=== PATIENT | male | born 1990 | race Caucasian/White ===

== ENCOUNTER 2022-06-30 15:53 | Emergency (ER) | payer OTHER, SELFPAY ==
--- NOTE | 2022-06-30 16:01 | ED.NECK ---
HPI - Neck Pain/Injury General Chief Complaint: Neck Pain/Injury Stated Complaint: neck pain Time Seen by Provider: 06/30/22 16:01 Source: patient and RN notes reviewed History of Present Illness HPI Narrative: Patient is a 31-year-old male who presents the urgent care with complaints of left-sided neck pain radiating down the left shoulder. Patient states he believes he tweaked it while trying to lift wood over his head at [employer] on Thursday and noticed the pain Thursday morning. Patient states he has been taking 800 mg ibuprofen and using Biofreeze. No other acute complaints. No acute distress noted. Patient aware of the plan of care. Some parts of this dictation were generated by voice recognition software and may contain typographical and/or grammatical inaccuracies. Related Data Home Medications Medication Instructions Recorded Confirmed dextroamphetamine-amphetamine ER 25 mg PO DAILY 06/30/22 06/30/22 25 mg 24hr capsule,extend release Allergies Allergy/AdvReac Type Severity Reaction Status Date / Time Penicillins Allergy Unknown Rash Verified 06/30/22 16:05 Review of Systems Review of Systems: CONSTITUTIONAL: Denies fever, chills, or sweats. EYES: Denies visual changes, redness, or discharge. ENT: Denies rhinorrhea, congestion, sore throat, or otalgia. Reports of left-sided neck pain CARDIOVASCULAR: Denies chest pain, palpitations, or edema. RESPIRATORY: Denies cough or dyspnea. GASTROINTESTINAL: Denies abdominal pain, nausea, vomiting, or diarrhea. GENITOURINARY: Denies dysuria or hematuria. SKIN: Denies rash or itching. MUSCULOSKELETAL: Denies back pain, joint pain, or myalgia. NEUROLOGIC: Denies headache, numbness, or weakness. All other systems reviewed are negative, except as documented in HPI. PMFSH Comments At the time of my signature, I reviewed and agree with the nursing past medical, surgical, social, and family history. There is no relevant family history pertinent to the patient complaint. Exam Narrative: GENERAL: This is a well-nourished, well-developed patient, in no apparent distress. HEAD: normocephalic, atraumatic. EYES: PERRL. Sclera clear/white. Vision is grossly intact. EARS: External ears normal NOSE: External nose normal with no obvious nasal discharge, nares without redness, no rhinorrhea. THROAT: Mucous membranes moist NECK: chin tuck, head tilt and right flexion within normal limits. Left flexion exacerbates pain. Moderate diffuse left cervical tenderness without step-off of cervical spine. SKIN: warm, intact with no suspicious lesions or rash, good texture and turgor. NEURO: awake, alert, and oriented to person, place and time. There were no obvious focal neurologic abnormalities. EXTREMITIES: No clubbing, cyanosis, or edema. Range of motion left upper extremity within normal limits Course Course Level of Care: Express Care Visit Vital Signs Vital signs: Vital Signs Temperature 97.6 F 06/30/22 16:05 Pulse Rate 94 06/30/22 16:05 Respiratory Rate 18 06/30/22 16:05 Blood Pressure 138/82 06/30/22 16:05 Pulse Oximetry 99 06/30/22 16:05 Oxygen Delivery Room Air 06/30/22 16:05 Temperature 97.6 F 06/30/22 16:05 Pulse Rate 94 06/30/22 16:05 Respiratory Rate 18 06/30/22 16:05 Blood Pressure 138/82 06/30/22 16:05 Pulse Oximetry 99 06/30/22 16:05 Oxygen Delivery Room Air 06/30/22 16:05 Reviewed MDM - Neck Pain/Injury MDM Narrative Medical decision making narrative: Advised the patient to complete the steroid regimen as prescribed. Take the steroid in the morning and use a muscle relaxer at night. You may use a muscle relaxer 3 times a day however would not recommend working, driving or operating heavy machinery while on the medication, due to drowsiness. May take 5 to 10 mg of Flexeril with each dose as needed, 3 times a day. Continue your 800 mg ibuprofen as needed for pain or discomfort. Avoid any heavy lifting especially above
[2022-06-30 16:05] VITALS: BP 138/82; PULSE 94; RESP 18; TEMP 36.4; O2SAT 99
== END 2022-06-30 16:32 | disposition home or self-care (01) ==
PROVIDERS: Emergency Provider Nurse Practitioner Family
DX: S16.1XXA Strain of muscle, fascia and tendon at neck level, initial encounter (principal); X50.9XXA Other and unspecified overexertion or strenuous movements or postures, initial encounter; F90.9 Attention-deficit hyperactivity disorder, unspecified type
CPT/HCPCS: 99203; G0463

== ENCOUNTER 2023-01-26 11:59 | Emergency (ER) | payer OTHER, SELFPAY ==
--- NOTE | 2023-01-26 12:09 | ED.URI ---
HPI - URI/Sore Throat General Chief Complaint: Upper Respiratory Infection Stated Complaint: sore throaat Time Seen by Provider: 01/26/23 12:09 Source: patient and RN notes reviewed History of Present Illness HPI Narrative: Patient is a 32-year-old male who presents to urgent care with complaints of 2 day history of headache and sore throat that started yesterday. Patient has been taking ibuprofen. Also reports of sinus drainage. Denies any fever, chills, nausea or vomiting. No other acute complaints. No acute distress noted. Patient aware of the plan of care. Some parts of this dictation were generated by voice recognition software and may contain typographical and/or grammatical inaccuracies. Related Data Home Medications Medication Instructions Recorded Confirmed dextroamphetamine-amphetamine ER 25 mg PO DAILY 06/30/22 06/30/22 25 mg 24hr capsule,extend release Allergies Allergy/AdvReac Type Severity Reaction Status Date / Time Penicillins Allergy Unknown Rash Verified 06/30/22 16:05 Review of Systems Review of Systems: CONSTITUTIONAL: Denies fever, chills, or sweats. EYES: Denies visual changes, redness, or discharge. ENT: Denies rhinorrhea, congestion, reports of sore throat postnasal drainage CARDIOVASCULAR: Denies chest pain, palpitations, or edema. RESPIRATORY: Denies cough or dyspnea. GASTROINTESTINAL: Denies abdominal pain, nausea, vomiting, or diarrhea. GENITOURINARY: Denies dysuria or hematuria. SKIN: Denies rash or itching. MUSCULOSKELETAL: Denies back pain, joint pain, or myalgia. NEUROLOGIC: Reports of headache. All other systems reviewed are negative, except as documented in HPI. PMFSH Comments At the time of my signature, I reviewed and agree with the nursing past medical, surgical, social, and family history. There is no relevant family history pertinent to the patient complaint. Exam Narrative: GENERAL: This is a well-nourished, well-developed patient, in no apparent distress. HEAD: normocephalic, atraumatic. EYES: PERRL. Sclera clear/white. Vision is grossly intact. EARS: External ears normal, auditory canals clear and without drainage, TMs normal without perforation. Hearing grossly intact. NOSE: External nose normal with no obvious nasal discharge, nares without redness, no rhinorrhea. THROAT: Mucous membranes moist, mild to moderate bilateral tonsillar edema with moderate postnasal drainage. NECK: Neck supple RESPIRATORY: Clear to auscultation. Breath sounds equal bilaterally. No wheezes, rales, or rhonchi. SKIN: warm, intact with no suspicious lesions or rash, good texture and turgor. NEURO: awake, alert, and oriented to person, place and time. There were no obvious focal neurologic abnormalities. EXTREMITIES: No clubbing, cyanosis, or edema. Course Course Level of Care: Express Care Visit Vital Signs Vital signs: Vital Signs Temperature 99 F 01/26/23 12:15 Pulse Rate 112 H 01/26/23 12:15 Respiratory Rate 20 01/26/23 12:15 Blood Pressure 135/80 01/26/23 12:15 Pulse Oximetry 100 01/26/23 12:15 Oxygen Delivery Room Air 01/26/23 12:15 Temperature 99 F 01/26/23 12:15 Pulse Rate 112 H 01/26/23 12:15 Respiratory Rate 20 01/26/23 12:15 Blood Pressure 135/80 01/26/23 12:15 Pulse Oximetry 100 01/26/23 12:15 Oxygen Delivery Room Air 01/26/23 12:15 Reviewed MDM - URI/Sore Throat MDM Narrative Medical decision making narrative: Reviewed lab results with the patient. He is aware that strep swab was positive. Advised patient to complete the oral antibiotic regimen as prescribed. Be sure to eat and drink with the medication. Would recommend a daily antihistamine such as Claritin or Zyrtec for it postnasal drainage. Use Tylenol/ibuprofen as needed for pain or headache. Increase water intake and use a humidifier at night. Be aware you are considered contagious until you have been on the medication for 24 hours and remained fever free. Vincent
[2023-01-26 12:15] VITALS: BP 135/80; PULSE 112; RESP 20; TEMP 37.2; O2SAT 100
== END 2023-01-26 12:30 | disposition home or self-care (01) ==
PROVIDERS: Emergency Provider Nurse Practitioner Family
DX: J02.0 Streptococcal pharyngitis (principal)
CPT/HCPCS: 87880; 99213; G0463

== ENCOUNTER 2023-07-13 14:40 | Emergency (ER) | payer OTHER, SELFPAY ==
[2023-07-13 14:44] VITALS: BP 141/70; PULSE 108; RESP 20; TEMP 36.7; O2SAT 96
--- NOTE | 2023-07-13 15:07 | ED.EYEPROB ---
HPI - Eye Problem General Chief complaint: Eye Problems Stated complaint: poss pink eye/sore throat Source: patient and RN notes reviewed History of Present Illness HPI Narrative: 32 yo M presents to urgent care with complaints of right eye irritation and itching. Pt states it started yesterday and now his left eye is started to itch. Pt reports his right eye was matted shut this morning with drainage. States his vision seems foggy in his right eye in clinic. Reports sore throat today as well. Denies any fevers, chills, EOM pain, chest pain, SOB, or vomiting. Does not wear conntacts. Related Data Home Medications Medication Instructions Recorded Confirmed dextroamphetamine-amphetamine ER 25 mg PO DAILY 06/30/22 07/13/23 25 mg 24hr capsule,extend release Allergies Allergy/AdvReac Type Severity Reaction Status Date / Time Penicillins Allergy Unknown Rash Verified 07/13/23 14:57 Review of Systems Review of Systems: CONSTITUTIONAL: Denies fever, chills, or sweats. EYES: right eye irritation and drainage ENT: sore throat CARDIOVASCULAR: Denies chest pain, palpitations, or edema. RESPIRATORY: Denies cough or dyspnea. GASTROINTESTINAL: Denies abdominal pain, nausea, vomiting, or diarrhea. GENITOURINARY: Denies dysuria or hematuria. SKIN: Denies rash or itching. MUSCULOSKELETAL: Denies back pain, joint pain, or myalgia. NEUROLOGIC: Denies headache, numbness, or weakness. Pertinent positives per HPI. PMFSH Comments At the time of my signature, I reviewed and agree with the nursing past medical, surgical, social, and family history. There is no relevant family history pertinent to the patient complaint. Exam Narrative: GENERAL: This is a well-nourished, well-developed patient, in no apparent distress. HEAD: normocephalic, atraumatic. EYES: Right sclera erythremic, injected conjunctivae. dried drainage to inner canthus. EOM intact. PERRLA. no surrounding erythema. Right lower conjunctiva injected. no drainage. mild sclera erythema. EARS: External ears normal, auditory canals clear and without drainage. Hearing grossly intact. NOSE: External nose normal with no obvious nasal discharge, nares without redness, no rhinorrhea. THROAT: Mucous membranes moist, posterior pharynx erythremic. NECK: Neck supple, non-tender without lymphadenopathy, masses or thyromegaly. CARDIOVASCULAR: Regular rate and rhythm without murmurs, gallops, or rubs. RESPIRATORY: Clear to auscultation. Breath sounds equal bilaterally. No wheezes, rales, or rhonchi. GASTROINTESTINAL: Abdomen soft, non-tender, nondistended. Bowel sounds are active. No hepato-splenomegaly, or palpable masses. No guarding. SKIN: warm, intact with no suspicious lesions or rash, good texture and turgor. NEURO: awake, alert, and oriented to person, place and time. There were no obvious focal neurologic abnormalities. EXTREMITIES: No clubbing, cyanosis, or edema. No joint tenderness, effusion, or edema noted. BACK: Nontender without deformity or crepitus. No flank tenderness. Course Course Level of Care: Express Care Visit Vital Signs Vital signs: Vital Signs Temperature 98.0 F 07/13/23 14:44 Pulse Rate 108 H 07/13/23 14:44 Respiratory Rate 96 H 07/13/23 14:44 Blood Pressure 141/70 H 07/13/23 14:44 Pulse Oximetry 96 07/13/23 14:44 Oxygen Delivery Room Air 07/13/23 14:44 Temperature 98.0 F 07/13/23 14:44 Pulse Rate 108 H 07/13/23 14:44 Respiratory Rate 96 H 07/13/23 14:44 Blood Pressure 141/70 H 07/13/23 14:44 Pulse Oximetry 96 07/13/23 14:44 Oxygen Delivery Room Air 07/13/23 14:44 Reviewed MDM - Eye Problem MDM Narrative Medical decision making narrative: Your exam today shows Conjunctivitis, You have been given a prescription for eye drops. Use the eye drops as instructed. If you are not better in two (2) days, you need to follow up with an welding machine operator friction. Do not rub the eye or put anything else in the eye,
== END 2023-07-13 15:17 | disposition home or self-care (01) ==
PROVIDERS: Emergency Provider Nurse Practitioner Family
DX: H10.9 Unspecified conjunctivitis (principal); F90.9 Attention-deficit hyperactivity disorder, unspecified type
CPT/HCPCS: 87081; 87880; 99213; G0463

== ENCOUNTER 2024-10-14 08:24 | Emergency (ER) | payer OTHER, SELFPAY ==
[2024-10-14 08:31] VITALS: BP 130/95; PULSE 106; RESP 20; TEMP 36.9; O2SAT 98
--- NOTE | 2024-10-14 08:35 | ED_ITS ---
HPI - URI/Sore Throat General Chief Complaint: Upper Respiratory Infection Stated Complaint: Congestion/Cough Time Seen by Provider: 10/14/24 08:35 Source: patient, RN notes reviewed and old records reviewed Mode of arrival: ambulatory Limitations: no limitations History of Present Illness HPI Narrative: 34 year old male who presents to [facility] care with complaints of 3 day history of cough with some congestion, headache and sore throat. Patient report that he took Mucinex and DayQuil yesterday but has not taken any medication so far today. Patient reports no known fevers but admits to some chills today. Patient states that son has bronchiolitis at this time. MD elicited complaint: cough and sore throat Pertinent past history: other (strep throat in past) Onset (ago): day(s) (3) Pain scale (0-10): 3 Able to tolerate fluids by mouth: Yes Treatments prior to arrival: other (Mucinex and DayQuil) Related Data Home Medications ?Medication ?Instructions ?Recorded ?Confirmed ?Last Taken ?Type dextroamphetamine-amphetamine ER 25 mg PO DAILY 06/30/22 10/14/24 Unknown History 25 mg 24hr capsule,extend release Allergies Allergy/AdvReac Type Severity Reaction Status Date / Time Penicillins Allergy Unknown Rash Verified 07/13/23 14:57 Review of Systems Review of Systems: CONSTITUTIONAL: Reports malaise, chills,no sweats, or known fever. EYES: Denies visual changes, redness, or discharge. ENT: Reports rhinorrhea, congestion, no sinus pain, no otalgia and poitive for sore throat. CARDIOVASCULAR: Denies chest pain, palpitations, or edema. RESPIRATORY: Reports cough.? Denies dyspnea. GASTROINTESTINAL: Denies abdominal pain, nausea, vomiting, diarrhea SKIN: Denies rash or itching. MUSCULOSKELETAL: Denies myalgia. NEUROLOGIC: Reports headache. All systems reviewed & are unremarkable except as noted in HPI and below PMFSH Past Medical History Medical History (Updated 10/14/24 @ 08:58 by Theodora Valle NP) ADHD (attention deficit hyperactivity disorder) Surgical History Surgical History (Updated 10/14/24 @ 08:37 by Theodora Valle NP) Hx of appendectomy Social History Social History (Updated 10/14/24 @ 08:38 by Theodora L. Leonard, DESK MAKER) Smoking status: Never smoker Alcohol intake: current Alcohol use details: social Substance use type: does not use Living arrangements: with family Gender identity (if verbalized by the patient): Male Comments At time of signature, agree with nursing past medical, surgical, social and family history. There is no relevant family history pertinent to the presenting complaint Exam Narrative: GENERAL: Well-appearing, well-nourished, and in no acute distress. HEAD: Normocephalic EYES: PERRLA, conjunctivae clear ENT: Nares clear, turbinates edematous and erythematous, clear discharge. Mucous membranes moist. TM pearly arguello with dull light reflex bilaterally; no tragal tenderness. Oropharynx erythematous without lesions. Tonsils red enlarged and without exudate, no drooling, no hoarseness, no trismus, uvula midline.post nasal drainage NECK: Supple. No lymphadenopathy CHEST: Clear to auscultation, breath sounds equal. No wheezing, rhonchi, rales, or stridor. No respiratory distress, speaks in full sentences. cough noted SAO2 98% on room air HEART: Regular rate and rhythm. No murmur heard. SKIN: Warm, dry, no rash. NEURO: Alert and oriented x3. PSYCH: Normal mood and affect Course Course Emergency Course: Patient is aware of diagnosis, understands and agrees to treatment plan.? Anticipatory guidance given.? Patient agrees to follow-up as directed and is aware of reasons to seek care at the emergency department. Portions of this record may have been created with voice recognition software Level of Care: Express Care Visit Vital Signs Vital signs: Vital Signs Temperature 36.9 C 10/14/24 08:31 Pulse Rate 106 H 10/14/24 08:31 Respiratory Rate 20 10/14/24 08:31 Blood Pressure 130/95 H 10/14/24 08:31 Pulse Oximetry 98 10/14/24 08:31 Oxygen Delivery Room Air 10/14/24 08:31 Temperature 36.9 C 10/14/24 08:31 Pulse Rate 106 H 10/14/24 08:31 Respiratory Rate 20 10/14/24 08:31 Blood Pressure 130/95 H 10/14/24 08:31 Pulse Oximetry 98 10/14/24 08:31 Oxygen Delivery Room Air 10/14/24 08:31 Reviewed MDM - URI/Sore Throat MDM Narrative Medical decision making narrative: Differential diagnosis considered: Miles virus, strep pharyngitis, allergic rhinitis, upper respiratory tract infection, sinusitis, rhinosinusitis, nasopharyngitis. viral pharyngitis, otitis media, otitis externa, pneumonia, bronchitis, viral cough syndrome, viral syndrome, and influenza.? Exam findings show no acute concerns or changes; patient is non-toxic appearing and is in no distress.? Patient is appropriate for outpatient treatment and follow-up. Differential Diagnosis Differential diagnosis: Likely upper respiratory infection, viral infection, bronchitis, pharyngitis and other (strep pharyngitis, acute cough) Medical Records Attestation: I reviewed the patient's medical records. Lab Data Attestation: I reviewed the patient's lab results. Lab results narrative: strep screen negative, culture sent Critical Care Time Critical Care Time Critical Care Time: No Discharge Plan Discharge Clinical Impression: Upper respiratory infection Qualifiers: URI type: unspecified URI Qualified Code(s): J06.9 - Acute upper respiratory infection, unspecified Pharyngitis Qualifiers: Pharyngitis/tonsillitis etiology: unspecified etiology Qualified Code(s): J02.9 - Acute pharyngitis, unspecified Patient Disposition: Home, Self-Care Condition: Stable Instructions: Pharyngitis (ED), Upper Respiratory Infection (ED) Additional Instructions: Increase fluids especially juices and water [id number] cough and cold medicine of your choice for your symptoms Zyrtec Claritin or Tamica daily Cough tablets as directed for cough--do not bite, chew or suck on--swallow whole Steroids as directed--take with food heat to the face 20-30 minutes 4-6 times a day for pain Salt water gargles, throat lozenges or throat sprays as desired If your symptoms persist, change or worsen significantly before you can contact your personal physician then please, without delay, go to the emergency department for further evaluation. Follow-up with PCP in 7-10 days or sooner if needed Follow up with PCP soon in regards to your blood pressure which is elevated above threshold for referral. Blood pressure above 120/80 may indicate pre- hypertension. 130/95 Your strep test today was negative. A throat culture will be sent to the laboratory for further testing. IF the test is positive, you will receive a phone call within 48 hours and an appropriate antibiotic will be initiated at that time. Patient Language: Nigerian Prescriptions: New benzonatate 200 mg capsule 200 mg PO TID PRN (Reason: cough) Qty: 20 0RF methylprednisolone [Medrol (Jayden)] 4 mg tablets,dose pack See Rx Instructions .ROUTE .COMPLEX Qty: 21 0RF Rx Instructions: orally per package directions No Action dextroamphetamine-amphetamine 25 mg capsule,extended release 24hr 25 mg PO DAILY Follow-up/Referrals: PHYSICIAN NOT ON STAFF,NONSTAFF [Primary Care Provider] - Time of Disposition: 08:57 Quality [place] Coma Scale Eyes: Open Verbal: Oriented and Alert Motor: Follows Commands William Coma Total Score: 15
[2024-10-14 08:56] LABS: EDSTREPNEGPOS1 Negative (Negative)
--- OUTSIDE RECORDS SUMMARY | 2024-10-14 12:13 | XMS_ITS | Clinical Summary ---
Author Organization [facility] Address [address] [place] [address] Phone Care Team Providers Care Locator Name Role Phone HESHAM JARRELL MD Primary Care Provider [phone], DAGMAR Hernández [phone] Reason for Visit and Chief Complaint The Chief Complaint is: Checkup, no concerns Problems Includes: Problems addressed during this encounter and other active Problems Current Visit Onset Date Resolved Date Provider Miles martínez Status Adhd, Combined Type 12/17/2020 DAGMAR JARRELL M.D. Active Last Documented On 1:25PM ; [facility] Plan of Treatment Change to adderall XR at 30 mg. - Last Documented On 01/22/2023 4:00PM ; [facility] Assessments Includes: Assessments from this encounter Findings - F90.2 - Attention-deficit hyperactivity disorder, combined type - Last Documented On 01/22/2023 4:00PM ; [facility] Medical Equipment - Implanted Devices Includes: Current Devices No Medical Equipment Recorded Medications Includes: Medications discussed during this encounter and other current Medications New / Renewed during this visit DAGMAR JARRELL M.D. on 01/22/2023 Adderall XR 30 MG Oral Capsule Extended Release 24 Hour Provider: DAGMAR JARRELL M.D. 30 day supply: 30 capsule, 0 refills Diagnosis: Attention-deficit hyperactivity disorder, combined type 1 Capsule every morning Pharmacy: [address], [phone] - Last Documented On 02/20/2023 10:36AM By HESHAM JARRELL MD ; [facility] Current Medications (continue as prescribed) Ibuprofen 800 MG Oral Tablet 09/17/2023 Provider: MERRY Muñiz Diagnosis: Low back pain, u nspecified Take one four times a day as needed/ take with food Last Documented On 3 3:57PM By Merry Murry PA-C ; [facility] Orphenadrine Citrate ER 100 MG Oral Tablet Extended Release 12 Hour 09/17/2023 Provider: MERRY MURRY PA-C Diagnosis: Low back pain, u nspecified 1 tab BID PRN back spasm Last Documented On 3 3:57PM By Merry Murry PA-C ; [facility] Adderall XR 30 MG Oral Capsule Extended Release 24 Hour 08/12/2023 Provider: DAGMAR JARRELL M.D. Diagnosis: Attention-defici t hyperactivity disorder, combined type 1 Capsule every morning Last Documented On 08/12/2023 11:50AM By HESHAM JARRELL MD ; [facility] Medications Administered Includes: Administered Medications from this encounter No Administered Medications Recorded Vital Signs Includes: Vital Signs from this encounter Vital Name 01/22/2023 03:30P Blood Pressure Sitting (mmHg) 120/80 Pulse Rate-Sitting (bpm) 99 Respiration Rate (breaths/min) 26 Temp-Oral (F) 98.4 Height (in) 69 Weight (lb) 256.2 Body Mass Index 37.8 Body Surface Area 2.3 Oxygen Saturation (%) 100 Last Documented: On 01/22/2023 3:33PM ; [facility] Results Includes: Results discussed during this encounter No Results Recorded For Specified Dates History of Present Illness Includes: History of Present Illness from this encounter COLLIN BANDA is a 32 year old male. Source of patient information was patient. Med seems to be not working as good late in day open to change in meds ? Strattera/ Ritalin/ Vyvanse. 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 Last Documented On 3 3:30PM ; [facility] Stopped smoking 8 years ago 01/29/2022 Last Documented On 3 3:30PM ; [facility] Chewing tobacco 09/19/2021 Last Documented On 3 3:30PM ; [facility] Tobacco non-user 07/02/2021 Last Documented On 3 3:30PM ; [facility] Current nonsmoker 05/31/2021 Last Documented On 3 3:30PM ; [facility] Former smoker 05/31/2021 Last Documented On 3 3:30PM ; [facility] Not using alcohol 09/19/2019 Last Documented On 3 3:30PM ; [facility] Not using drugs 09/19/2019 Last Documented On 3 3:30PM ; [facility] Smoking status : Former smoker 7 Last Documented On 3 3:30PM ; [facility] Procedures and Surgical History Includes: Procedures from this encounter Procedures Code Diagnosis Performing Provider Service L ocation Service Date use of tobacco assessment performed 1000F Last Documented On 3 3:33PM ; [facility] standardized depression screening: negative for symptoms 3351F Last Documented On 3 3:30PM ; [facility] review of medications documented 1160F Last Documented On 3 3:33PM ; [facility] assessment of suicide risk performed Last Documented On 3 3:30PM ; [facility] screening for adult depression: impressi on and score one Last Documented On 3 3:30PM ; [facility] Medical History Includes: Medical History addressed during this encounter No Medical History Recorded Family History Includes: Family History addressed during this encounter Description Last Updated Children 01/29/2022 Last Documented On 3 3:30PM ; [facility] Review of Systems Includes: Review of Systems from this encounter Systemic: No systemic symptoms and no edema. Head: No headache. Cardiovascular: No cardiovascular symptoms and no chest pain or discomfort. Pulmonary: No pulmonary symptoms and no shortness of breath. Gastrointestinal: No gastrointestinal symptoms. Genitourinary: No genitourinary symptoms. Neurological: No dizziness. Mental Status Includes: Mental Status from this encounter Description Thought processes were not i mpaired The thought content revealed no impairment Functional Status Includes: Functional Status from this encounter No Functional Status Recorded Physical Exam Includes: Physical Exam from this encounter Allergies Includes: Active Allergies Substance Type Reaction Onset Date Resolved Date Statu s Penicillins Allergy 09/17/2017 Active Last Documented On 3 3:44PM ; [facility] Encounters Encounter Provider Location Date Check-In Time Check-Out Time Diagnosis CHECK UP DAGMAR JARRELL M[facility] 01/23/20 23 3:18PM 3:47PM Adhd, Combined Type Insurance Includes: Active Insurance Policies Plan Name Member ID Group # Subscriber Relationship Effect afsaneh Dates 1 - [facility] [id number] RAJIV BANDA S [facility] Clinical Notes Includes: Clinical Notes from this encounter * Progress note Date Encounter Last Documented by 01/22/2023 CHECK UP Last documented on 01/22/2023; 4:00 PM, DAGMAR JARRELL M.D.; [facility] Active Problems & Conditions - F90.2 - Adhd, Combined Type Chief Complaint The Chief Complaint is: Checkup, no concerns. History of Present Illness RAJIV BANDA is a 32 year old male. Source of patient information was patient. Med seems to be not working as good late in day open to change in meds ? Strattera/ Ritalin/ Vyvanse. - Allergy list reviewed - Medication list reviewed - Decreased functioning ability - Mood was euthymic - No insomnia - No problems with one's peer group - No socially inappropriate behavior - No systemic symptoms - No chronic/recurring headaches - No anorexia - and No nausea - No tics Current Medication - Adderall XR 25 MG Oral Capsule Extended Release 24 Hour 1 Capsule every morningNeed Office Visit., 15 days, 0 refills - Ibuprofen 800 MG Oral Tablet Take one four times a day as needed/ take with food, 30 days, 0 refills Social History Tobacco use: Not a current smoker. Former smoker stopped smoking 8 years ago, current nonsmoker, and chewing tobacco. Smoking status: Former smoker. Alcohol: Not using alcohol. Drug Use: Not using drugs. 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 Marital: Currently . Allergies - Penicillins Family History Children Review Of Systems Systemic: No systemic symptoms and no edema. Head: No headache. Cardiovascular: No cardiovascular symptoms and no chest pain or discomfort. Pulmonary: No pulmonary symptoms and no shortness of breath. Gastrointestinal: No gastrointestinal symptoms. Genitourinary: No genitourinary symptoms. Neurological: No dizziness. Physical Findings - Vitals taken 01/22/2023 03:30 pm BP-Sitting 120/80 mmHg 100 - 120/60 - 80 Pulse Rate-Sitting 99 bpm 50 - 100 Respiration Rate 26 per min 18 - 26 Temp-Oral 98.4 F 96 - 101 Height 69 in 65 - 75 Weight 256 lbs 3.2 oz 125 - 225 Body Mass Index 37.8 kg/m2 Body Surface Area 2.3 m2 Oxygen Saturation 100 % 93 - 100 General Appearance: - Well developed. - Well nourished. - In no acute distress. Eyes: General/bilateral: Extraocular Movements: - Normal. Pupils: - PERRLA. Lungs: - Respiratory movements were normal. - Clear to auscultation. Cardiovascular: Heart Rate And Rhythm: - Normal. Heart Sounds: - Normal. Murmurs: - No murmurs were heard. Neurological: Speech: - Normal. Psychiatric: Appearance: - Normal. Mood: - Euthymic. Affect: - Normal. Thought Processes: - Not impaired. Thought Content: - Revealed no impairment. Assessment - F90.2 - Attention-deficit hyperactivity disorder, combined type Therapy - Assessment of suicide risk performed Plan StartCited - Attention-deficit hyperactivity disorder, combined type Adderall XR 30 MG capsule 1 Capsule every morning, 30 days, 0 refills EndCited StartCited - Other Follow-up Follow up in 1 month EndCited Change to adderall XR at 30 mg. Practice Management Use of tobacco assessment performed Review of medications documented; Standardized depression screening: negative for symptoms and for adult impression and score one.
--- OUTSIDE RECORDS SUMMARY | 2024-10-14 12:13 | XMS_ITS | Clinical Summary ---
Author Organization [facility] Address [address] [place] [address] Phone Care Team Providers Care Sales And Service Consultant Name Role Phone WESLY VARGAS, HESHAM Primary Care Provider [phone] WESLY Christie, DAGMAR Hernández [phone] Reason for Visit and Chief Complaint The Chief Complaint is: Checkup, no concerns Problems Includes: Problems addressed during this encounter and other active Problems Current Visit Onset Date Resolved Date Provider Miles martínez Status Adhd, Combined Type 12/17/2020 DAGMAR JARRELL M.D. Active Last Documented On 1 1:25PM ; [facility] Plan of Treatment No Plan of Treatment Recorded Assessments Includes: Assessments from this encounter Findings - F90.2 - Attention-deficit hyperactivity disorder, combined type - Last Documented On 02/23/2023 3:56PM ; [facility] Medical Equipment - Implanted Devices Includes: Current Devices No Medical Equipment Recorded Medications Includes: Medications discussed during this encounter and other current Medications Current Medications (continue as prescribed) Ibuprofen 800 MG Oral Tablet 09/17/2023 Provider: MERRY Muñiz Diagnosis: Low back pain, u nspecified Take one four times a day as needed/ take with food Last Documented On 3 3:57PM By Merry Murry PA-C ; [facility] Orphenadrine Citrate ER 100 MG Oral Tablet Extended Release 12 Hour 09/17/2023 Provider: MERRY MURRY PA-C Diagnosis: Low back pain, u nspecified 1 tab BID PRN back spasm Last Documented On 3 3:57PM By Merry Murry PA-C ; [facility] Adderall XR 30 MG Oral Capsule Extended Release 24 Hour 08/12/2023 Provider: DAGMAR JARRELL M.D. Diagnosis: Attention-defici t hyperactivity disorder, combined type 1 Capsule every morning Last Documented On 08/12/2023 11:50AM By HESHAM JARRELL MD ; [facility] Medications Administered Includes: Administered Medications from this encounter No Administered Medications Recorded Vital Signs Includes: Vital Signs from this encounter Vital Name 02/23/2023 03:19P Blood Pressure Sitting (mmHg) 126/88 Pulse Rate-Sitting (bpm) 114 Respiration Rate (breaths/min) 21 Temp-Oral (F) 98.7 Height (in) 69 Weight (lb) 249.4 Body Mass Index 36.8 Body Surface Area 2.3 Oxygen Saturation (%) 98 Last Documented: On 02/23/2023 3:23PM ; [facility] Results Includes: Results discussed during this encounter CBC WITH DIFF [facility] [place] [facility] Ordered by DAGMAR Weiner on 02/06/2023 [address], [place], [address] Collected: 02/06/2023 Report ed: 02/06/2023 08:54 tel: Last Documented On 3 3:13PM ; [facility] Reviewed by DAGMAR JARRELL M.D. on 02/06/2023; All test results are final unless otherwise noted. Review Note Provider Name Date Will Discuss results with Patient next visit. DYLAN JARRELL M.D. 02/06/2023 ALC 2.6 None Last Documented On 3 10:31AM ; [facility] Note: Responsible Observer: (HRG) ANC 4.8 None Last Documented On 3 10:31AM ; [facility] Note: Responsible Observer: (HRG) BASO# 0.1 th/uL (0.0 - 0.2) None Last Documented On 3 10:31AM ; [facility] Note: Responsible Observer: (HRG) BASO% 1.0 % (0.0 - 2.0) None Last Documented On 3 10:31AM ; [facility] Note: Responsible Observer: (HRG) CBC WITH DIFF See Note None Last Documented On 3 10:31AM ; [facility] Note: CBC (COMPLETE BLOOD COUNT)Responsi ble Observer: (HRG) DIFF (Y/N) NO None Last Documented On 3 10:31AM ; [facility] Note: Responsible Observer: (HRG) EOS# 0.04 th/uL (0.00 - 0.45) None Last Documented On 3 10:31AM ; [facility] Note: Responsible Observer: (HRG) EOS% 0.5 % (0.0 - 9.0) None Last Documented On 10:31AM ; [facility] Note: Responsible Observer: (HRG) HCT 45.6 % (40.0 - 54.0) None Last Documented On 10:31AM ; [facility] Note: Responsible Observer: (HRG) HGB 15.4 g/dL (13.5 - 17.5) None Last Documented On 10:31AM ; [facility] Note: Responsible Observer: (HRG) IG% 0.4 % (0.0 - 0.5) None Last Documented On 10:31AM ; [facility] Note: Responsible Observer: (HRG) LYMPH# 2.58 th/uL (1.00 - 4.80) None Last Documented On 3 10:31AM ; [facility] Note: Responsible Observer: (HRG) LYMPH% 31.1 % (14.0 - 45.0) None Last Documented On 10:31AM ; [facility] Note: Responsible Observer: (HRG) MCH 30.1 pg (25.0 - 35.0) None Last Documented On 3 10:31AM ; [facility] Note: Responsible Observer: (HRG) MCHC 33.8 g/dL (31.0 - 36.0) None Last Documented On 3 10:31AM ; [facility] Note: Responsible Observer: (HRG) MCV 89.2 fl (80.0 - 100) None Last Documented On 3 10:31AM ; [facility] Note: Responsible Observer: (HRG) MONO# 0.73 th/uL (0.00 - 0.80) None Last Documented On 3 10:31AM ; [facility] Note: Responsible Observer: (HRG) MONO% 8.8 % (1.0 - 10.0) None Last Documented On 3 10:31AM ; [facility] Note: Responsible Observer: (HRG) MPV 9.3 fl (6.0 - 11.0) None Last Documented On 3 10:31AM ; [facility] Note: Responsible Observer: (HRG) NEUT# 4.84 th/uL None Last Documented On 3 10:31AM ; [facility] Note: Responsible Observer: (HRG) NEUT% 58.2 % (45.0 - 76.0) None Last Documented On 3 10:31AM ; [facility] Note: Responsible Observer: (HRG) NRBC% 0.0 % (0.0 - 0.0) None Last Documented On 3 10:31AM ; [facility] Note: Responsible Observer: (HRG) PLT 346 th/uL (150 - 400) None Last Documented On 3 10:31AM ; [facility] Note: Responsible Observer: (HRG) RBC 5.11 mil/uL (4.50 - 5.90) None Last Documented On 3 10:31AM ; [facility] Note: Responsible Observer: (HRG) RDW 12.3 % (11.0 - 16.0) None Last Documented On 3 10:31AM ; [facility] Note: Responsible Observer: (HRG) WBC 8.3 th/uL (4.5 - 11.0) None Last Documented On 3 10:31AM ; [facility] Note: Responsible Observer: (HRG) A1C HGB (GLYCO HEMOGLOBIN) [facility] Ordered by DAGMAR Weiner on 02/06/2023 [address], [place], [address] Collected: 02/06/2023 Report ed: 02/06/2023 09:55 tel: Last Documented On 3 3:13PM ; [facility] Reviewed by DAGMAR JARRELL M.D. on 02/06/2023; All test results are final unless otherwise noted. Review Note Provider Name Date Will Discuss results with Patient next visit. DYLAN JARRELL M.D. 02/06/2023 A1C HGB (GLYCO HEMOGLOBIN) See Note None Last Documented On 10:31AM ; [facility] Note: Glycohemoglobin (HEMOGLOBIN A1C)Re sponsible Observer: (NOV) Hgb A1c 5.3 %_A1c (4.0 - 6.0) None Last Documented On 10:31AM ; [facility] Note: Responsible Observer: (NOV) MBG 105 mg/dL (65 - 99) H (High) Last Documented On 3 10:31AM ; [facility] Note: *MBG (mean blood glucose) is a stephanie culated estimate of the mean blood glucose itis also refered to as estimated Average Glucose (eAG).*Responsible Observer: (NOV) [facility] [place] [facility] Ordered by DAGMAR Weiner on 02/06/2023 [address], [place], [address] Collected: 02/06/2023 Report ed: 02/06/2023 09:56 tel: Last Documented On 3 3:13PM ; [facility] Reviewed by DAGMAR JARRELL M.D. on 02/06/2023; All test results are final unless otherwise noted. Review Note Provider Name Date Will Discuss results with Patient next visit. DYLAN JARRELL M.D. 02/06/2023 A/G RATIO 1.6 (1.1 - 2.2) None Last Documented On 3 10:31AM ; [facility] Note: Responsible Observer: (NOV) AGE 45 YEARS None Last Documented On 3 10:31AM ; [facility] Note: Responsible Observer: (NOV) ALBUMIN 4.2 g/dL (3.5 - 5.0) None Last Documented On 3 10:31AM ; [facility] Note: Responsible Observer: (NOV) ALK PHOS 82 IU/L (40 - 150) None Last Documented On 3 10:31AM ; [facility] Note: Responsible Observer: (NOV) ALT (SGPT) 14 IU/L (0 - 55) None Last Documented On 3 10:31AM ; [facility] Note: Responsible Observer: (NOV) ANION GAP 14.2 mmol/L (8.0 - 16.0) None Last Documented On 3 10:31AM ; [facility] Note: Responsible Observer: (NOV) AST (SGOT) 12 IU/L (5 - 34) None Last Documented On 3 10:31AM ; [facility] Note: Responsible Observer: (NOV) BILIRUBIN TOT 0.7 mg/dL (0.2 - 1.0) None Last Documented On 3 10:31AM ; [facility] Note: Responsible Observer: (NOV) BUN 11 mg/dL (9 - 20) None Last Documented On 3 10:31AM ; [facility] Note: Responsible Observer: (NOV) CALCIUM 9.7 mg/dL (8.9 - 10.0) None Last Documented On 3 10:31AM ; [facility] Note: Responsible Observer: (NOV) CHLORIDE 108 mmol/L (98 - 107) H (High) Last Documented On 3 10:31AM ; [facility] Note: Responsible Observer: (NOV) CMP See Note None Last Documented On 3 10:31AM ; [facility] Note: COMPREHENSIVE METABOLIC PANELRespo nsible Observer: (NOV) CREATININE 1.2 mg/dL (0.8 - 1.5) None Last Documented On 3 10:31AM ; [facility] Note: Responsible Observer: (NOV) GFR Afr-Am 85 ml/min None Last Documented On 3 10:31AM ; [facility] Note: Responsible Observer: (NOV) GFR Non-AfrAm 70 ml/min None Last Documented On 3 10:31AM ; [facility] Note: GFR INTERPRETATION AGE AVG GFR 20 -29 116 ml/min/1.73 m2 30-39 107 ml/min/1.73 m2 40-49 99 ml/min/1.73 m2 50-59 93 ml/min/1.73 m2 60-69 85 ml/min/1.73 m2 70+ 75 ml/min/1.73 m2 Chronic Kidney Disease-Less than 60 ml/min Kidney Failure-Less than 15 ml/minResponsible Observer: (NOV) GLOBULIN 2.6 g/dl (2.0 - 4.2) None Last Documented On 3 10:31AM ; [facility] Note: Responsible Observer: (NOV) GLUCOSE 100 mg/dL (65 - 99) H (High) Last Documented On 3 10:31AM ; [facility] Note: Responsible Observer: (NOV) POTASSIUM 4.2 mmol/L (3.6 - 5.0) None Last Documented On 3 10:31AM ; [facility] Note: Responsible Observer: (NOV) SODIUM 141 mmol/L (137 - 145) None Last Documented On 3 10:31AM ; [facility] Note: Responsible Observer: (NOV) TCO2 23.0 mmol/L (22.0 - 30.0) None Last Documented On 3 10:31AM ; [facility] Note: Responsible Observer: (NOV) TOTAL PROTEIN 6.8 g/dL (6.4 - 8.3) None Last Documented On 3 10:31AM ; [facility] Note: Responsible Observer: (NOV) LIPID PANEL [facility] [place] Ordered by DAGMAR Weiner on 02/06/2023 [address], [place], [address] Collected: 02/06/2023 Report ed: 02/06/2023 09:56 tel:[phone] Last Documented On 3 3:13PM ; [facility] Reviewed by DAGMAR JARRELL M.D. on 02/06/2023; All test results are final unless otherwise noted. Review Note Provider Name Date Will Discuss results with Patient next visit. DYLAN JARRELL M.D. 02/06/2023 CHOL/HDLC 5.7 (0.0 - 4.8) H (High) Last Documented On 3 10:31AM ; [facility] Note: Responsible Observer: (NOV) CHOLESTEROL 206 mg/dL (0 - 200) H (High) Last Documented On 3 10:31AM ; [facility] Note: Responsible Observer: (NOV) HDL 36 mg/dL (29 - 67) None Last Documented On 10:31AM ; [facility] Note: Responsible Observer: (NOV) LDL 144 mg/dL (0 - 130) H (High) Last Documented On 10:31AM ; [facility] Note: Coronary Artery Risk Panel Referen ce Values Based on the recommendations of the Heart, Lung and Blood [place] (in mg/dL) Risk Levels = High Borderline Desirable Cholesterol >240 200 - 240 <200 LDL >160 130 - 159 <130 Cholesterol/HDL Ratio Male <= 4.88 Female <= 4.23Responsible Observer: (NOV) LIPID PANEL See Note None Last Documented On 3 10:31AM ; [facility] Note: LIPID PANELResponsible Observer: ( NOV) TRIGLYCERIDE 131 mg/dL (1 - 150) None Last Documented On 10:31AM ; [facility] Note: Responsible Observer: (NOV) TSH [facility] [place] [facility] Ordered by DAGMAR Weiner on 02/06/2023 [address], [place], [address] Collected: 02/06/2023 Report ed: 02/06/2023 10:29 tel: Last Documented On 3:13PM ; [facility] Reviewed by DAGMAR JARRELL M.D. on 02/06/2023; All test results are final unless otherwise noted. Review Note Provider Name Date Will Discuss results with Patient next visit. DYLAN JARRELL M.D. 02/06/2023 TSH 1.1925 uIU/mL (0.3500 - 4.9400) None Last Documented On 3 10:31AM ; [facility] Note: Responsible Observer: (TER) History of Present Illness Includes: History of Present Illness from this encounter HPI RAJIV BANDA is a 32 year old male. Source of patient information was patient. Meds sometimes works really good/ but there are days / it does not work that good. 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 Last Documented On 3 3:19PM ; [facility] Stopped smoking 8 years ago 01/29/2022 Last Documented On 3 3:19PM ; [facility] Chewing tobacco 09/19/2021 Last Documented On 3 3:19PM ; [facility] Current nonsmoker 05/31/2021 Last Documented On 3 3:19PM ; [facility] Former smoker 05/31/2021 Last Documented On 3 3:19PM ; [facility] Not using alcohol 09/19/2019 Last Documented On 3 3:19PM ; [facility] Not using drugs 09/19/2019 Last Documented On 3 3:19PM ; [facility] Smoking status : Former smoker 7 Last Documented On 3 3:19PM ; [facility] Procedures and Surgical History Includes: Procedures from this encounter Procedures Code Diagnosis Performing Provider Service L ocation Service Date continue current medication Last Documented On 3 3:56PM ; [facility] use of tobacco assessment performed 1000F Last Documented On 3 3:23PM ; [facility] standardized depression screening: negative for symptoms 3351F Last Documented On 3 3:19PM ; [facility] review of medications documented 1160F Last Documented On 3 3:23PM ; [facility] assessment of suicide risk performed Last Documented On 3 3:19PM ; [facility] screening for adult depression: impressi on and score one Last Documented On 3 3:19PM ; [facility] Medical History Includes: Medical History addressed during this encounter No Medical History Recorded Family History Includes: Family History addressed during this encounter Description Last Updated Children 01/29/2022 Last Documented On 3 3:19PM ; [facility] Review of Systems Includes: Review of Systems [...] Active Last Documented On 3 3:44PM ; [facility] Encounters Encounter Provider Location Date Check-In Time Check-Out Time Diagnosis CHECK UP DAGMAR JARRELL M.D. [facility] 02/24/20 23 3:30PM 3:50PM Adhd, Combined Type Insurance Includes: Active Insurance Policies Plan Name Member ID Group # Subscriber Relationship Effect afsaneh Dates 1 - [facility] [id number] RAJIV carter Clinical Notes Includes: Clinical Notes from this encounter * Progress note Date Encounter Last Documented by 02/23/2023 CHECK UP Last documented on 02/23/2023; 3:56 PM, DAGMAR JARRELL M.D.; [facility] Active Problems & Conditions - F90.2 - Adhd, Combined Type Chief Complaint The Chief Complaint is: Checkup, no concerns. History of Present Illness RAJIV BANDA is a 32 year old male. Source of patient information was patient. Meds sometimes works really good/ but there are days / it does not work that good. - Allergy list reviewed - Medication list [...] Office Visit., 15 days, 0 refills - Adderall XR 30 MG Oral Capsule Extended Release 24 Hour 1 Capsule every morning, 30 days, 0 refills - Ibuprofen 800 MG Oral Tablet Take one four times a day as needed/ take with food, 30 days, 0 refills Social History Tobacco use: Not a current smoker. Former smoker stopped smoking 8 years ago, current nonsmoker, and chewing tobacco. Smoking status: Former smoker. Alcohol: Not using alcohol. Drug Use: Not using drugs. 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 Marital: Currently . Allergies - Penicillins Family History Children Review Of Systems Systemic: No systemic symptoms and no edema. Head: No headache. Cardiovascular: No cardiovascular symptoms and no chest pain or discomfort. Pulmonary: No pulmonary symptoms and no shortness of breath. Gastrointestinal: No gastrointestinal symptoms. Genitourinary: No genitourinary symptoms. Neurological: No dizziness. Physical Findings - Vitals taken 02/23/2023 03:19 pm BP-Sitting 126/88 mmHg 100 - 120/60 - 80 Pulse Rate-Sitting 114 bpm 50 - 100 Respiration Rate 21 per min 18 - 26 Temp-Oral 98.7 F 96 - 101 Height 69 in 65 - 75 Weight 249 lbs 6.4 oz 125 - 225 Body Mass Index 36.8 kg/m2 Body Surface Area 2.3 m2 Oxygen Saturation 98 % 93 - 100 General Appearance: - Well developed. - Well nourished. - In no acute distress. Eyes: General/bilateral: Extraocular Movements: - Normal. Pupils: - PERRLA. Nose: General/bilateral: Discharge: - No nasal discharge. Lymph Nodes: - Normal. Lungs: - Respiratory movements were normal. - Clear to auscultation. Cardiovascular: Heart Rate And Rhythm: - Normal. Heart Sounds: - Normal. Murmurs: - No murmurs were heard. Neurological: Speech: - Normal. Psychiatric: Appearance: - Normal. Mood: - Euthymic. Affect: - Normal. Thought Processes: - Not impaired. Thought Content: - Revealed no impairment. Assessment - F90.2 - Attention-deficit hyperactivity disorder, combined type Previous Tests - Test: CBC WITH DIFF Report Date: 02/06/2023 ALC 2.6 ANC 4.8 BASO# 0.1 th/uL BASO% 1.0 % CBC WITH DIFF DIFF (Y/N) NO EOS# 0.04 th/uL EOS% 0.5 % HCT 45.6 % HGB 15.4 g/dL IG% 0.4 % LYMPH# 2.58 th/uL LYMPH% 31.1 % MCH 30.1 pg MCHC 33.8 g/dL MCV 89.2 fl MONO# 0.73 th/uL MONO% 8.8 % MPV 9.3 fl NEUT# 4.84 th/uL NEUT% 58.2 % NRBC% 0.0 % PLT 346 th/uL RBC 5.11 mil/uL RDW 12.3 % WBC 8.3 th/uL - Test: A1C HGB (GLYCO HEMOGLOBIN) Report Date: 02/06/2023 A1C HGB (GLYCO HEMOGLOBIN) Hgb A1c 5.3 % A1c MBG 105 mg/dL High - Test: CMP Report Date: 02/06/2023 A/G RATIO 1.6 AGE 45 YEARS ALBUMIN 4.2 g/dL ALK PHOS 82 IU/L ALT (SGPT) 14 IU/L ANION GAP 14.2 mmol/L AST (SGOT) 12 IU/L BILIRUBIN TOT 0.7 mg/dL BUN 11 mg/dL CALCIUM 9.7 mg/dL CHLORIDE 108 mmol/L High CMP CREATININE 1.2 mg/dL GFR Afr-Am 85 ml/min GFR Non-AfrAm 70 ml/min GLOBULIN 2.6 g/dl GLUCOSE 100 mg/dL High POTASSIUM 4.2 mmol/L SODIUM 141 mmol/L TCO2 23.0 mmol/L TOTAL PROTEIN 6.8 g/dL - Test: LIPID PANEL Report Date: 02/06/2023 CHOL/HDLC 5.7 High CHOLESTEROL 206 mg/dL High HDL 36 mg/dL LDL 144 mg/dL High LIPID PANEL TRIGLYCERIDE 131 mg/dL - Test: TSH Report Date: 02/06/2023 TSH 1.1925 uIU/mL Therapy - Continue current medication. - Assessment of suicide risk performed Plan StartCited - Other Follow-up Follow up in 3 months EndCited Practice Management Use of tobacco assessment performed Review of medications documented; Standardized depression screening: negative for symptoms and for adult impression and score one.
--- OUTSIDE RECORDS SUMMARY | 2024-10-14 12:13 | XMS_ITS ---
Care Plan - [facility] Created on: October 14, 2024 RAJIV BANDA : 1990 Sex: Male Author Organization [facility] Address [address] [place] [address] Phone Care Team Providers Care Park Keeper Name Role Phone WESLY VARGAS, HESHAM Primary Care Provider [phone] WESLY Christie, DAGMAR Hernández [phone]
--- OUTSIDE RECORDS SUMMARY | 2024-10-14 12:13 | XMS_ITS | Clinical Summary ---
Author Organization [facility] Address [address] [place] [address] Phone Care Team Providers Care Fashion Marketer Name Role Phone WESLY VARGAS, HESHAM Primary Care Provider [phone] WESLY Christie, DAGMAR Hernández [phone] Reason for Visit and Chief Complaint CHECK UP Problems Includes: Problems addressed during this encounter and other active Problems All Visits Onset Date Resolved Date Provider Condition S tatus Adhd, Combined Type 12/17/2020 DAGMAR JARRELL M.D. Active Last Documented On 1 1:25PM ; [facility] Plan of Treatment No Plan of Treatment Recorded Assessments Includes: Assessments from this encounter No Assessments Recorded Medical Equipment - Implanted Devices Includes: Current [...] 3 3:57PM By Merry Murry PA-C ; [facility] Orphenadrine Citrate ER 100 MG Oral Tablet Extended Release 12 Hour 09/17/2023 Provider: MERRY MURRY PA-C Diagnosis: Low back pain, u nspecified 1 tab BID PRN back spasm Last Documented On 3 3:57PM By Merry Murry PA-C ; [facility] Adderall XR 30 MG Oral Capsule Extended Release 24 Hour 08/12/2023 Provider: DAGMAR JARRELL M.D. Diagnosis: Attention-defici t hyperactivity disorder, combined type 1 Capsule every morning Last Documented On 08/12/2023 11:50AM By HESHAM JARRELL MD ; [facility] Medications Administered Includes: Administered Medications from this encounter No Administered Medications Recorded Results Includes: Results discussed during this encounter No Results Recorded For Specified Dates History of Present Illness Includes: History of Present Illness from this encounter No History of Present Illness Recorded Social History No Social History Recorded - Smoking Status Unknown Medical History Includes: Medical History addressed during this encounter No Medical History Recorded Family History Includes: Family History addressed during this encounter No Family History Recorded Review of Systems Includes: Review of Systems from this encounter No Review of Systems Recorded Mental Status Includes: Mental Status from this encounter No Mental Status Recorded Functional Status Includes: Functional Status from this encounter No Functional Status Recorded Physical Exam Includes: Physical Exam from this encounter No Physical Exam Recorded Allergies Includes: Active Allergies Substance Type Reaction Onset Date Resolved Date Statu s Penicillins Allergy 09/17/2017 Active Last Documented On 3 3:44PM ; [facility] Encounters Encounter Provider Location Date Check-In Time Check-Out Time Diagnosis CHECK UP DAGMAR JARRELL M.D. 08/15/2022 9:32AM 11:59PM Insurance Includes: Active Insurance Policies Plan Name Member ID Group # Subscriber Relationship Effect afsaneh Dates 1 - [facility] [id number] RAJIV carter Clinical Notes Includes: Clinical Notes from this encounter No Clinical Notes Recorded
--- OUTSIDE RECORDS SUMMARY | 2024-10-14 12:13 | XMS_ITS | Clinical Summary ---
Author Organization [facility] Address [address] [place] [address] Phone Care Team Providers Care [employer] Name Role Phone WESLY VARGAS, HESHAM Primary Care Provider [phone] WESLY Christie, DAGMAR Hernández [phone] Reason for Visit and Chief Complaint The Chief Complaint is: Pt bent over to pickle solution maker a garden hose, felt a pop in his lower back, and caused immediate pain and went down to his knees. States that it is very tight. Took a Hydrocodone that he had left over from April when he hurt his back. It hasn't helped much Problems Includes: Problems addressed during this encounter and other active Problems All Visits Onset Date Resolved Date Provider Condition S tatus Adhd, Combined Type 12/17/2020 DAGMAR JARRELL M.D. Active Last Documented On 1 1:25PM ; [facility] Plan of Treatment Toradol today. May take tylenol PRN Different muscle relaxer rx to try. Continue alternating ice and heat RTC PRN - Last Documented On 09/17/2023 5:09PM ; [facility] Pending Tests Order Diagnosis Results Due Ordering P rovider Injections Toradol Low back pain, unspecified 09/17/23 MERRY GARCIA-C Last Documented On 3 5:09PM ; [facility] Injections Theraputic Injection Low back pa in, unspecified 09/17/23 MERRY GARCIA-C Last Documented On 3 5:09PM ; [facility] Instructions to patient Intervention and counseling on cessation of tobacco use Last Documented On 3 3:37PM ; [facility] Assessments Includes: Assessments from this encounter Findings - [M54.50 - Low back pain, unspecified] Lumbago - Last Documented On 09/17/2023 5:09PM ; [facility] Instructions Includes: Instructions from this encounter Instructions to patient Intervention and counseling on cessation of tobacco use Last Documented On 3 3:37PM ; [facility] Medical Equipment - Implanted Devices Includes: Current Devices No Medical Equipment Recorded Medications Includes: Medications discussed during this encounter and other current Medications New / Renewed during this visit MERRY MURRY PA-C on 09/17/2023 Ibuprofen 800 MG Oral Tablet Provider: MERRY Muñiz 30 day supply: 120 tablet, 0 refills Diagnosis: Low back pain, unspecified Take one four times a day as needed/ take with food Pharmacy: [facility]) - [address] [facility], [phone] - Last Documented On 3 3:57PM By Merry Murry PA-C ; [facility] Orphenadrine Citrate ER 100 MG Oral Tablet Extended Release 12 Hour Provider: MERRY MURRY PA-C 7 day supply: 14 tablet, 0 refills Diagnosis: Low back pain, unspecified 1 tab BID PRN back spasm Pharmacy: [facility]) - [address] [facility], [phone] - Last Documented On 3 3:57PM By Merry Murry PA-C ; [facility] Current Medications (continue as prescribed) Adderall XR 30 MG Oral Capsule Extended Release 24 Hour 08/12/2023 Provider: DAGMAR JARRELL M.D. Diagnosis: Attention-defici t hyperactivity disorder, combined type 1 Capsule every morning Last Documented On 08/12/2023 11:50AM By HESHAM JARRELL MD ; [facility] Medications Administered Includes: Administered Medications from this encounter No Administered Medications Recorded Vital Signs Includes: Vital Signs from this encounter Vital Name 09/17/2023 03:31P Blood Pressure Sitting R 132/80 Pulse Rate-Sitting (bpm) 92 Respiration Rate (breaths/min) 18 Height (in) 69 Weight (lb) 247.375 Body Mass Index 36.5 Body Surface Area 2.3 Oxygen Saturation (%) 97 Last Documented: On 09/17/2023 3:35PM ; [facility] Results Includes: Results discussed during this encounter No Results Recorded For Specified Dates History of Present Illness Includes: History of Present Illness from this encounter COLLIN BANDA is a 33 year old male. - Allergy list reviewed - Medication list reviewed - No systemic symptoms - No head symptoms - No otolaryngeal symptoms - No cardiovascular symptoms - No pulmonary symptoms - No gastrointestinal symptoms - No genitourinary symptoms - Musculoskeletal symptoms - No psychological symptoms Patient in clinic for evaluation of back pain that started today. He was lifting a garden hose when he felt a pop. Patient has history of back problems. Went to ER for this over the summer and given cyclobenzaprine and norco. States he had norco left over and he took it today but did not find any relief. He states pain today is worse than ever been in the past. He is anticipating going hunting with kids this weekend, but does not feel he is able at this point. Has been using heating pad today. No saddle anesthesia or loss of bowel control. No radiation down legs. 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 Last Documented On 3 3:30PM ; [facility] Stopped smoking 8 years ago 01/29/2022 Last Documented On 3 3:30PM ; [facility] Chewing tobacco 09/19/2021 Last Documented On 3 3:30PM ; [facility] Tobacco non-user 07/02/2021 Last Documented On 3 3:30PM ; [facility] Current nonsmoker 05/31/2021 Last Documented On 3 3:30PM ; [facility] Former smoker 05/31/2021 Last Documented On 3 3:30PM ; [facility] Smoking Status Unknown Procedures and Surgical History Includes: Procedures from this encounter Procedures Code Diagnosis Performing Provider Service L ocation Service Date intervention and counseling on cessation of tobacco use 4000F Last Documented On 3 3:37PM ; [facility] use of tobacco assessment performed 1000F Last Documented On 3 3:37PM ; [facility] review of medications documented 1160F Last Documented On 3 3:37PM ; [facility] Medical History Includes: Medical History addressed during this encounter No Medical History Recorded Family History Includes: Family History addressed during this encounter Description Last Updated Children 01/29/2022 Last Documented On 3 3:30PM ; [facility] Review of Systems Includes: Review of Systems from this encounter Systemic: No fever, no chills, and no recent weight change. Head: No headache and no sinus pain. Otolaryngeal: No earache, no nasal discharge, and no sore throat. Cardiovascular: No chest pain or discomfort and no palpitations. Pulmonary: No dyspnea and no cough. Gastrointestinal: No nausea, no vomiting, no abdominal pain, and no melena. No diarrhea. Musculoskeletal: Muscle aches. Psychological: No anxiety and no depression. Mental Status Includes: Mental Status from this encounter Description No anxiety Functional Status Includes: Functional Status from this encounter No Functional Status Recorded Physical Exam Includes: Physical Exam from this encounter Allergies Includes: Active Allergies Substance Type Reaction Onset Date Resolved Date Statu s Penicillins Allergy 09/17/2017 Active Last Documented On 3 3:44PM ; [facility] Encounters Encounter Provider Location Date Check-In Time Check- Out Time Diagnosis PROBLEM VISIT MERRY MURRY PA-C [facility]- 3 3:10PM 4:05PM Lumbago Insurance Includes: Active Insurance Policies Plan Name Member ID Group # Subscriber Relationship Effect afsaneh Dates 1 - [facility] [id number] RAJIV carter Clinical Notes Includes: Clinical Notes from this encounter * Progress note Date Encounter Last Documented by 09/17/2023 PROBLEM VISIT Last documented on 09/17/2023; 5:09 PM, MERRY MURRY PA-C; [facility] Active Problems & Conditions - F90.2 - Adhd, Combined Type Chief Complaint The Chief Complaint is: Pt bent over to pickle solution maker a garden hose, felt a pop in his lower back, and caused immediate pain and went down to his knees. States that it is very tight. Took a Hydrocodone that he had left over from April when he hurt his back. It hasn't helped much. History of Present Illness RAJIV BANDA is a 33 year old male. - Allergy list reviewed - Medication list reviewed - No systemic symptoms - No head symptoms - No otolaryngeal symptoms - No cardiovascular symptoms - No pulmonary symptoms - No gastrointestinal symptoms - No genitourinary symptoms - Musculoskeletal symptoms - No psychological symptoms Patient in clinic for evaluation of back pain that started today. He was lifting a garden hose when he felt a pop. Patient has history of back problems. Went to ER for this over the summer and given cyclobenzaprine and norco. States he had norco left over and he took it today but did not find any relief. He states pain today is worse than ever been in the past. He is anticipating going hunting with kids this weekend, but does not feel he is able at this point. Has been using heating pad today. No saddle anesthesia or loss of bowel control. No radiation down legs. Current Medication - Adderall XR 30 MG Oral Capsule Extended Release 24 Hour 1 Capsule every morning, 28 days, 0 refills - Ibuprofen 800 MG Oral Tablet Take one four times a day as needed/ take with food, 30 days, 0 refills Social History Tobacco use: Former smoker stopped smoking 8 years ago, current nonsmoker, and chewing tobacco. 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 Marital: Currently . Allergies - Penicillins Family History Children Review Of Systems Systemic: No fever, no chills, and no recent weight change. Head: No headache and no sinus pain. Otolaryngeal: No earache, no nasal discharge, and no sore throat. Cardiovascular: No chest pain or discomfort and no palpitations. Pulmonary: No dyspnea and no cough. Gastrointestinal: No nausea, no vomiting, no abdominal pain, and no melena. No diarrhea. Musculoskeletal: Muscle aches. Psychological: No anxiety and no depression. Physical Findings - Vitals taken 09/17/2023 03:31 pm BP-Sitting R 132/80 mmHg Pulse Rate-Sitting 92 bpm Respiration Rate 18 per min Height 69 in Weight 247 lbs 6 oz Body Mass Index 36.5 kg/m2 Body Surface Area 2.3 m2 Oxygen Saturation 97 % General Appearance: - Well developed. - Well nourished. - In no acute distress. Lungs: - Normal breath sounds/voice sounds. - No wheezing was heard. Cardiovascular: Heart Rate And Rhythm: - Normal. Murmurs: - No murmurs were heard. Musculoskeletal System: General/bilateral: - Musculoskeletal system: no midline spine tenderness. muscle spasm bilaterally in lumbar region. pain to deep palpation right lumbar musculature. Assessment - [M54.50 - Low back pain, unspecified] Lumbago Therapy - Intervention and counseling on cessation of tobacco use. Plan StartCited - Low back pain, unspecified Injections: Toradol, Theraputic Injection Ibuprofen 800 MG tablet Take one four times a day as needed/ take with food, 30 days, 0 refills Orphenadrine Citrate ER 100 MG tablet 1 tab BID PRN back spasm, 7 days, 0 refills EndCited Toradol today. May take tylenol PRN Different muscle relaxer rx to try. Continue alternating ice and heat RTC PRN Practice Management Use of tobacco assessment performed Review of medications documented. Health Reminders - Assess BMI satisfied 09/17/2023. - Assess Tobacco Use satisfied 09/17/2023. - Smoking & Tobacco Cessation Intervention and Counseling satisfied 09/17/2023.
--- OUTSIDE RECORDS SUMMARY | 2024-10-14 12:13 | XMS_ITS ---
Author Organization [facility] Address [address] [place] [address] Phone Care Team Providers Care Green Tire Inspector Name Role Phone WESLY VARGAS, HESHAM Primary Care Provider [phone] WESLY Christie, DAGMAR Hernández [phone] Problems Includes: Active, inactive, and resolved Problems All Visits Onset Date Resolved Date Provider Condition S tatus Adhd, Combined Type 12/17/2020 DAGMAR JARRELL M.D. Active Last Documented On 1 1:25PM ; [facility] Plan of Treatment Findings Encounter Date change to adderall XR at 30 mg CHECK UP with HESHAM JARRELL M.D. 01/22/2023 Last Documented On 3 4:00PM ; [facility] Continue current medication CHECK UP with SANDRA JARRELL M.D. 01/29/2022 Last Documented On 2 1:37PM ; [facility] Monitor Blood Pressure at home CHECK UP with HESHAM JARRELL M.D. 01/29/2022 Last Documented On 2 1:37PM ; [facility] Ordered patient to call if jorge luis null develops CHECK UP with DAGMAR JARRELL M.D. 01/29/2022 Last Documented On 2 1:37PM ; [facility] Ordered return to the clinic if condition worsens or new symptoms arise CHECK UP with DAGMAR JARRELL M.D. 01/29/2022 Last Documented On 2 1:37PM ; [facility] Ordered patient to call if p roblem develops PROBLEM VISIT with DAGMAR JARRELL M.D. 07/02/2021 Last Documented On 1 10:29AM ; [facility] Ordered return to the clinic if condition worsens or new symptoms arise PROBLEM VISIT with DAGMAR JARRELL M.D. 07/02/2021 Last Documented On 1 10:29AM ; [facility] Plan - start medication PROBLEM VISIT with KELLY JARRELL M.D. 07/02/2021 Last Documented On 1 10:29AM ; [facility] Acetaminophen alternating wi th Motrin Patient may take alternating Tylenol or Ibuprofen every 4 to 6 hours as needed for fever and pain SICK VISIT with DAGMAR JARRELL M.D. 05/31/2021 Last Documented On 1 10:52AM ; [facility] Ordered patient to call if p roblem develops SICK VISIT with DAGMAR JARRELL M.D. 05/31/2021 Last Documented On 1 10:52AM ; [facility] Ordered return to the clinic if condition worsens or new symptoms arise SICK VISIT with DAGMAR JARRELL M.D. 05/31/2021 Last Documented On 1 10:52AM ; [facility] Supportive care was advised. Symptomatic therapy for symptoms. Can use over the counter cough or cold medicine and tylenol as needed SICK VISIT with DAGMAR JARRELL M.D. 05/31/2021 Last Documented On 1 10:52AM ; [facility] Ordered patient to call if p roblem develops 3 MONTH CHECK with DAGMAR JARRELL M.D. 12/23/2019 Last Documented On 0 10:21AM ; [facility] Ordered return to the clinic if condition worsens or new symptoms arise 3 MONTH CHECK with DAGMAR JARRELL M.D. 12/23/2019 Last Documented On 0 10:21AM ; [facility] Acetaminophen alternating wi th Motrin Patient may take alternating Tylenol or Ibuprofen every 4 to 6 hours as needed for fever and pain SICK VISIT with DAGMAR JARRELL M.D. 12/13/2019 Last Documented On 0 3:37PM ; [facility] Ordered patient to call if jorge luis null develops SICK VISIT with DAGMAR Justin.D. 12/13/2019 Last Documented On 0 3:37PM ; [facility] Ordered return to the clinic if condition worsens or new symptoms arise SICK VISIT with DAGMAR Justin.D. 12/13/2019 Last Documented On 0 3:37PM ; [facility] Supportive care was advised. Symptomatic therapy for symptoms. Can use over the counter cough or cold medicine and tylenol as needed SICK VISIT with DAGMAR Justin.Tena 12/13/2019 Last Documented On 0 3:37PM ; [facility] Ordered chest x-ray ordered in outside facility NEW PATIENT VISIT with DAGMAR JARRELL M.D. 09/19/2019 Last Documented On 9 11:58AM ; [facility] Ordered patient to call if p kirklem develops NEW PATIENT VISIT with DAGMAR Justin.Sarahi. 09/19/2019 Last Documented On 9 11:58AM ; [facility] Ordered return to the clinic if condition worsens or new symptoms arise NEW PATIENT VISIT with DAGMAR Justin.Sarahi. 09/19/2019 Last Documented On 9 11:58AM ; [facility] Pt to use prescription as or dered. Purpose of and use of medication discussed. [facility] SICK VISIT with GUERLINE LEE CHEESE BLENDERRESHMA 09/17/2017 Last Documented On 7 4:57PM ; [facility] Instructions to patient Intervention and counseling on cessation of tobacco use Last Documented On 3 3:37PM ; [facility] Intervention and counseling on cessation of tobacco use Last Documented On 1 9:57AM ; [facility] Intervention and counseling on cessation of tobacco use Last Documented On 1 10:10AM ; [facility] Intervention and counseling on cessation of tobacco use : Patient recieved smoking cessation handout Last Documented On 1 11:08AM ; [facility] Education and Decision Aids were provided during visit for: Education and counseling Adv ice appropriate Dietary regimen Last Documented On 2 1:36PM ; [facility] Education and counseling Adv ice to have regular exercise regimen Last Documented On 2 1:36PM ; [facility] Assessments Includes: Assessments for all patient encounters Findings Encounter Date [M54.50 - Low back pain, uns pecified] lumbago PROBLEM VISIT with DAISY ROWLAND PA-C 09/17/2023 Last Documented On 3 5:09PM ; [facility] ADHD, combined type CHECK UP with DAGMAR S DIZO N M.D. 05/25/2023 Last Documented On 3 3:55PM ; [facility] ADHD, combined type CHECK UP with DAGMAR S DIZO N M.D. 02/23/2023 Last Documented On 3 3:56PM ; [facility] ADHD, combined type CHECK UP with DAGMAR S DIZO N M.D. 01/22/2023 Last Documented On 3 4:00PM ; [facility] ADHD, combined type CHECK UP with DAGMAR S DIZO N M.D. 05/02/2022 Last Documented On 2 10:13AM ; [facility] ADHD, combined type CHECK UP with DAGMAR S DIZO N M.D. 01/29/2022 Last Documented On 2 1:37PM ; [facility] ADHD, combined type CHECK UP with DAGMAR S DIZO N M.D. 09/19/2021 Last Documented On 1 2:49PM ; [facility] Lumbago PROBLEM VISIT with DAGMAR S DIZ ON M.D. 07/02/2021 Last Documented On 1 10:29AM ; [facility] Acute pharyngitis SICK VISIT with DAGMAR S DIZO N M.D. 05/31/2021 Last Documented On 1 10:52AM ; [facility] Upper respiratory infection SICK VISIT with ERNIE MACHINE FASTENER S WESLY M.D. 05/31/2021 Last Documented On 1 10:52AM ; [facility] ADHD, combined type CHECK UP with DAGMARDilip MENDEZ N M.D. 03/19/2021 Last Documented On 1 11:35AM ; [facility] ADHD, combined type ANNUAL PHYSICAL EXAM with DYLAN Justin.Tena 12/17/2020 Last Documented On 1 1:26PM ; [facility] Attention-deficit hyperactivity disorder MED CHECK with DAGMAR Batsheva JARRELL M.D. 11/01/2020 Last Documented On 0 1:43PM ; [facility] Routine adult history and ph ysical (18-64 yrs) without abnormal findings 3 MONTH CHECK with DAGMAR S WESLY M.D. 12/23/2019 Last Documented On 0 10:21AM ; [facility] Upper respiratory infection SICK VISIT with ERNIE MACHINE FASTENER S WESLY M.D. 12/13/2019 Last Documented On 0 3:37PM ; [facility] Viral syndrome SICK VISIT with DAGMAR Batsheva MENDEZN M.D. 12/13/2019 Last Documented On 0 3:37PM ; [facility] Hyperlipidemia NEW PATIENT VISIT with DAGMAR Batsheva MENDEZN M.D. 09/19/2019 Last Documented On 9 11:58AM ; [facility] Lung mass NEW PATIENT VISIT with DAGMARDilip JARRELL M.D. 09/19/2019 Last Documented On 9 11:58AM ; [facility] Viral gastroenteritis WALK-IN CLINIC SIC K VISIT with GUERLINE LEE [facility] 09/17/2017 Last Documented On 7 4:57PM ; [facility] Instructions Includes: Instructions for all patient encounters Instructions to patient Intervention and counseling on cessation of tobacco use Last Documented On 3 3:37PM ; [facility] Intervention and counseling on cessation of tobacco use Last Documented On 1 9:57AM ; [facility] Intervention and counseling on cessation of tobacco use Last Documented On 1 10:10AM ; [facility] Intervention and counseling on cessation of tobacco use : Patient recieved smoking cessation handout Last Documented On 1 11:08AM ; [facility] Education and Decision Aids were provided during visit for: Education and counseling Adv ice appropriate Dietary regimen Last Documented On 2 1:36PM ; [facility] Education and counseling Adv ice to have regular exercise regimen Last Documented On 2 1:36PM ; [facility] Medical Equipment - Implanted Devices Includes: Current and historical Devices No Medical Equipment Recorded Medications Includes: Current and historical Medications Current Medications (continue as prescribed) Ibuprofen 800 MG Oral Tablet 09/17/2023 Provider: DAISY Muñiz Diagnosis: Low back pain, u nspecified Take one four times a day as needed/ take with food Last Documented On 3 3:57PM By Daisy Rowland PA-C ; [facility] Orphenadrine Citrate ER 100 MG Oral Tablet Extended Release 12 Hour 09/17/2023 Provider: DAISY ROWLAND PA-C Diagnosis: Low back pain, u nspecified 1 tab BID PRN back spasm Last Documented On 3 3:57PM By Daisy Rowland PA-C ; [facility] Adderall XR 30 MG Oral Capsule Extended Release 24 Hour 08/12/2023 Provider: DAGMAR JARRELL M.D. Diagnosis: Attention-defici t hyperactivity disorder, combined type 1 Capsule every morning Last Documented On 08/12/2023 11:50AM By HESHAM JARRELL MD ; [facility] Past Medications on file Adderall XR 30 MG Oral Capsule Extended Release 24 Hour 07/14/2023 - 08/12/2023 Provider: DAGMAR JARRELL M.D. Diagnosis: Attention-defici t hyperactivity disorder, combined type 1 Capsule every morning Last Documented On 08/12/2023 11:34AM By HESHAM JARRELL MD ; [facility] Adderall XR 30 MG Oral Capsule Extended Release 24 Hour 07/14/2023 - 07/14/2023 Provider: DAGMAR JARRELL M.D. Diagnosis: Attention-defici t hyperactivity disorder, combined type 1 Capsule every morning Last Documented On 07/14/2023 9:03AM By HESHAM JARRELL MD ; [facility] Adderall XR 30 MG Oral Capsule Extended Release 24 Hour 06/16/2023 - 07/14/2023 Provider: DAGMAR JARRELL M.D. Diagnosis: Attention-defici t hyperactivity disorder, combined type 1 Capsule every morning Last Documented On 07/14/2023 9:02AM By HESHAM JARRELL MD ; [facility] Ibuprofen 800 MG Oral Tablet 05/25/2023 - 09/17/2023 P rovider: DAGMAR JARRELL M.D. Diagnosis: Take one four times a day as needed/ take with f ood Last Documented On 3:53PM By Daisy Rowland PA-C ; [facility] Adderall XR 30 MG Oral Capsule Extended Release 24 Hour 05/18/2023 - 06/16/2023 Provider: DAGMAR JARRELL M.D. Diagnosis: Attention-defici t hyperactivity disorder, combined type 1 Capsule every morning Last Documented On 06/16/2023 4:42PM By HESHAM JARRELL MD ; [facility] Adderall XR 30 MG Oral Capsule Extended Release 24 Hour 04/20/2023 - 05/18/2023 Provider: DAGMAR JARRELL M.D. Diagnosis: Attention-defici t hyperactivity disorder, combined type 1 Capsule every morning Last Documented On 05/18/2023 10:49PM By HESHAM JARRELL MD ; [facility] Adderall XR 30 MG Oral Capsule Extended Release 24 Hour 03/23/2023 - 04/20/2023 Provider: DAGMAR JARRELL M.D. Diagnosis: Attention-defici t hyperactivity disorder, combined type 1 Capsule every morning Last Documented On 04/20/2023 4:59PM By HESHAM JARRELL MD ; [facility] Adderall XR 30 MG Oral Capsule Extended Release 24 Hour 02/20/2023 - 03/23/2023 Provider: DAGMAR JARRELL M.D. Diagnosis: Attention-defici t hyperactivity disorder, combined type 1 Capsule every morning Last Documented On 03/23/2023 10:20AM By HESHAM JARRELL MD ; [facility] Adderall XR 30 MG Oral Capsule Extended Release 24 Hour 01/22/2023 - 02/20/2023 Provider: DAGMAR JARRELL M.D. Diagnosis: Attention-defici t hyperactivity disorder, combined type 1 Capsule every morning Last Documented On 02/20/2023 10:36AM By HESHAM JARRELL MD ; [facility] Adderall XR 25 MG Oral Capsule Extended Release 24 Hour 01/13/2023 - 05/25/2023 Provider: DAGMAR JARRELL M.D. Diagnosis: Attention-defici t hyperactivity disorder, combined type 1 Capsule every morningNeed Office Visit. Last Documented On 05/25/2023 3:54PM By HESHAM JARRELL MD ; [facility] Adderall XR 25 MG Oral Capsule Extended Release 24 Hour 12/29/2022 - 01/13/2023 Provider: DAGMAR JARRELL M.D. Diagnosis: Attention-defici t hyperactivity disorder, combined type 1 Capsule every morningNeed Office Visit. Last Documented On 01/13/2023 11:20AM By HESHAM JARRELL MD ; [facility] Adderall XR 25 MG Oral Capsule Extended Release 24 Hour 12/12/2022 - 12/29/2022 Provider: DAGMAR JARRELL M.D. Diagnosis: Attention-defici t hyperactivity disorder, combined type 1 Capsule every morningNeed Office Visit. Last Documented On 12/29/2022 9:40AM By HESHAM JARRELL MD ; [facility] Adderall XR 25 MG Oral Capsule Extended Release 24 Hour 11/27/2022 - 12/12/2022 Provider: DAGMAR JARRELL M.D. Diagnosis: Attention-defici t hyperactivity disorder, combined type 1 Capsule every morningNeed Office Visit. Last Documented On 12/12/2022 4:03PM By HESHAM JARRELL MD ; [facility] Adderall XR 25 MG Oral Capsule Extended Release 24 Hour 11/10/2022 - 11/27/2022 Provider: DAGMAR JARRELL M.D. Diagnosis: Attention-defici t hyperactivity disorder, combined type 1 Capsule every morningNeed Office Visit. Last Documented On 11/27/2022 10:29AM By HESHAM JARRELL MD ; [facility] Adderall XR 25 MG Oral Capsule Extended Release 24 Hour 10/28/2022 - 11/10/2022 Provider: DAGMAR JARRELL M.D. Diagnosis: Attention-defici t hyperactivity disorder, combined type 1 Capsule every morningNeed Office Visit. Last Documented On 11/10/2022 2:07PM By HESHAM JARRELL MD ; [facility] Ibuprofen 800 MG Oral Tablet 10/10/2022 - 05/25/2023 P rovider: DAGMAR JARRELL M.D. Diagnosis: Take one four times a day as needed/ take with f ood Last Documented On 05/25/2023 3:36PM By HESHAM JARRELL MD ; [facility] Adderall XR 25 MG Oral Capsule Extended Release 24 Hour 10/10/2022 - 10/28/2022 Provider: DAGMAR JARRELL M.D. Diagnosis: Attention-defici t hyperactivity disorder, combined type 1 Capsule every morningNeed Office Visit. Last Documented On 10/28/2022 4:49PM By HESHAM JARRELL MD ; [facility] Adderall XR 25 MG Oral Capsule Extended Release 24 Hour 09/23/2022 - 10/10/2022 Provider: DAGMAR JARRELL M.D. Diagnosis: Attention-defici t hyperactivity disorder, combined type 1 Capsule every morningNeed Office Visit. Last Documented On 10/10/2022 4:30PM By HESHAM JARRELL MD ; [facility] Adderall XR 25 MG Oral Capsule Extended Release 24 Hour 08/25/2022 - 09/23/2022 Provider: DAGMAR JARRELL M.D. Diagnosis: Attention-defici t hyperactivity disorder, combined type 1 Capsule every morningNeed Office Visit. Last Documented On 09/23/2022 3:51PM By HESHAM JARRELL MD ; [facility] Adderall XR 25 MG Oral Capsule Extended Release 24 Hour 07/24/2022 - 08/25/2022 Provider: DAGMAR JARRELL M.D. Diagnosis: Attention-defici t hyperactivity disorder, combined type 1 Capsule every morning Last Documented On 08/25/2022 10:46AM By HESHAM JARRELL MD ; [facility] Adderall XR 25 MG Oral Capsu le Extended Release 24 Hour 06/26/2022 - 07/24/2022 Provider: DAGMAR THOMPSON M.D. Diagnosis: 1 Capsule every morning Last Documented On 07/24/2022 11:10AM By HESHAM JARRELL MD ; [facility] Adderall XR 25 MG Oral Capsu le Extended Release 24 Hour 05/27/2022 - 05/27/2022 Provider: DAGMAR THOMPSON M.D. Diagnosis: 1 Capsule every morning Last Documented On 05/27/2022 1:21PM By HESHAM JARRELL MD ; [facility] Adderall XR 25 MG Oral Capsu le Extended Release 24 Hour 05/27/2022 - 06/26/2022 Provider: DAGMAR THOMPSON M.D. Diagnosis: 1 Capsule every morning Last Documented On 06/26/2022 9:49AM By HESHAM JARRELL MD ; [facility] Adderall XR 25 MG Oral Capsu le Extended Release 24 Hour 04/29/2022 - 05/27/2022 Provider: DAGMAR THOMPSON M.D. Diagnosis: 1 Capsule every morning Last Documented On 05/27/2022 9:46AM By HESHAM JARRELL MD ; [facility] Adderall XR 25 MG Oral Capsule Extended Release 24 Hour 04/01/2022 - 04/29/2022 Provider: IMANI ÁLVAREZ D.O. Diagnosis: 1 Capsule every morning Last Documented On 04/29/2022 9:20AM By HESHAM JARRELL MD ; [facility] Adderall XR 25 MG Oral Capsule Extended Release 24 Hour 02/27/2022 - 04/01/2022 Provider: IMANI ÁLVAREZ D.O. Diagnosis: 1 Capsule every morning Last Documented On 04/01/2022 10:53AM By IMANI ÁLVAREZ DO ; [facility] Adderall XR 25 MG Oral Capsu le Extended Release 24 Hour 01/29/2022 - 02/27/2022 Provider: DAGMAR THOMPSON M.D. Diagnosis: 1 Capsule every morning Last Documented On 02/27/2022 5:21PM By IMANI ÁLVAREZ DO ; [facility] Adderall XR 25 MG Oral Capsu le Extended Release 24 Hour 01/15/2022 - 01/29/2022 Provider: DAGMAR THOMPSON M.D. Diagnosis: 1 capsule dailyNeed Office Visit. Last Documented On 01/29/2022 11:47AM By HESHAM JARRELL MD ; [facility] Adderall XR 25 MG Oral Capsu le Extended Release 24 Hour 12/20/2021 - 01/15/2022 Provider: DAGMAR THOMPSON M.D. Diagnosis: 1 capsule daily Last Documented On 01/15/2022 1:18PM By HESHAM JARRELL MD ; [facility] Adderall XR 25 MG Oral Capsu le Extended Release 24 Hour 11/19/2021 - 12/20/2021 Provider: DAGMAR THOMPSON M.D. Diagnosis: 1 capsule daily Last Documented On 12/20/2021 8:55AM By HESHAM JARRELL MD ; [facility] Adderall XR 25 MG Oral Capsu le Extended Release 24 Hour 10/22/2021 - 11/19/2021 Provider: DAGMAR THOMPSON M.D. Diagnosis: 1 capsule daily Last Documented On 11/19/2021 11:04AM By HESHAM JARRELL MD ; [facility] Adderall XR 25 MG Oral Capsu le Extended Release 24 Hour 09/23/2021 - 10/22/2021 Provider: DAGMAR THOMPSON M.D. Diagnosis: 1 capsule daily Last Documented On 10/22/2021 8:56AM By HESHAM JARRELL MD ; [facility] Adderall XR 25 MG Oral Capsu le Extended Release 24 Hour 09/09/2021 - 09/23/2021 Provider: DAGMAR THOMPSON M.D. Diagnosis: 1 capsule dailyNeed Office Visit. Last Documented On 09/23/2021 9:11AM By HESHAM JARRELL MD ; [facility] Adderall XR 25 MG Oral Capsu le Extended Release 24 Hour 08/26/2021 - 09/09/2021 Provider: DAGMAR THOMPSON M.D. Diagnosis: 1 capsule dailyNeed Office Visit. Last Documented On 09/09/2021 3:46PM By HESHAM JARRELL MD ; [facility] Adderall XR 25 MG Oral Capsu le Extended Release 24 Hour 08/13/2021 - 08/26/2021 Provider: DAGMAR THOMPSON M.D. Diagnosis: 1 capsule dailyNeed Office Visit. Last Documented On 08/26/2021 9:19AM By HESHAM AJRRELL MD ; [facility] Adderall XR 25 MG Oral Capsu le Extended Release 24 Hour 07/15/2021 - 08/13/2021 Provider: DAGMAR THOMPSON M.D. Diagnosis: 1 capsule dailyNeed Office Visit. Last Documented On 08/13/2021 3:07PM By HESHAM JARRELL MD ; [facility] Adderall XR 25 MG Oral Capsu le Extended Release 24 Hour 07/15/2021 - 07/15/2021 Provider: DAGMAR THOMPSON M.D. Diagnosis: 1 capsule dailyNeed Office Visit. Last Documented On 07/15/2021 3:13PM By HESHAM JARRELL MD ; [facility] Ibuprofen 800 MG Oral Tablet 07/02/2021 - 10/10/2022 Provider: DAGMAR JARRELL M.D. Diagnosis: Low back pain Take one four times a day as needed/ take with food Last Documented On 10/10/2022 4:30PM By HESHAM JARRELL MD ; [facility] Adderall XR 25 MG Oral Capsu le Extended Release 24 Hour 06/17/2021 - 07/15/2021 Provider: DAGMAR THOMPSON M.D. Diagnosis: 1 capsule dailyNeed Office Visit. Last Documented On 07/15/2021 2:08PM By HESHAM JARRELL MD ; [facility] Adderall XR 25 MG Oral Capsu le Extended Release 24 Hour 05/17/2021 - 06/17/2021 Provider: DAGMAR THOMPSON M.D. Diagnosis: 1 capsule daily Last Documented On 06/17/2021 7:05PM By HESHAM JARRELL MD ; [facility] Adderall XR 25 MG Oral Capsule Extended Release 24 Hour 04/18/2021 - 05/17/2021 Provider: DAGMAR JARRELL M.D. Diagnosis: Attention-defici t hyperactivity disorder, combined type 1 capsule daily Last Documented On 05/17/2021 9:05AM By HESHAM JARRELL MD ; [facility] Adderall XR 25 MG Oral Capsule Extended Release 24 Hour 03/19/2021 - 04/18/2021 Provider: DAGMAR JARRELL M.D. Diagnosis: Attention-defici t hyperactivity disorder, combined type 1 capsule daily Last Documented On 04/18/2021 10:31AM By HESHAM JARRELL MD ; [facility] Adderall XR 20 MG Oral Capsu le Extended Release 24 Hour 02/22/2021 - 05/31/2021 Provider: DAGMAR THOMPSON M.D. Diagnosis: 1 capsule daily Last Documented On 05/31/2021 10:10AM By Linnette Green Marielle ; [facility] Adderall XR 20 MG Oral Capsu le Extended Release 24 Hour 01/25/2021 - 02/22/2021 Provider: DAGMAR THOMPSON M.D. Diagnosis: 1 capsule daily Last Documented On 02/22/2021 3:55PM By HESHAM JARRELL MD ; [facility] Adderall XR 20 MG Oral Capsu le Extended Release 24 Hour 12/27/2020 - 01/25/2021 Provider: DAGMAR THOMPSON M.D. Diagnosis: 1 capsule daily Last Documented On 01/25/2021 8:54AM By HESHAM JARRELL MD ; [facility] Adderall XR 20 MG Oral Capsu le Extended Release 24 Hour 12/14/2020 - 12/27/2020 Provider: DAGMAR THOMPSON M.D. Diagnosis: 1 capsule daily Last Documented On 12/27/2020 11:33AM By HESHAM JARRELL MD ; [facility] Adderall XR 20 MG Oral Capsu le Extended Release 24 Hour 12/14/2020 - 12/14/2020 Provider: DAGMAR THOMPSON M.D. Diagnosis: 1 capsule daily Last Documented On 12/14/2020 10:58AM By HESHAM JARRELL MD ; [facility] Adderall XR 20 MG Oral Capsu le Extended Release 24 Hour 11/29/2020 - 12/14/2020 Provider: DAGMAR THOMPSON M.D. Diagnosis: 1 capsule daily Last Documented On 12/14/2020 10:19AM By HESHAM JARRELL MD ; [facility] Adderall XR 20 MG Oral Capsu le Extended Release 24 Hour 11/01/2020 - 11/29/2020 Provider: DAGMAR THOMPSON M.D. Diagnosis: 1 capsule daily Last Documented On 11/29/2020 2:34PM By HESHAM JARRELL MD ; [facility] Zofran ODT 4MG Oral Tablet Disintegrating 09/17/2017 - 09/19/2019 Provider: GUERLINE LEE CHEESE BLENDER-BC Diagnosis: Viral intestinal infection, unspecified 1 every 6 hours as needed for nausea Last Documented On 9 11:03AM By Jenni Lopez Marielle ; [facility] Medications Administered Includes: Administered Medications in patient's chart Medications Administered Diagnosis Date Pro vider EQ Ibuprofen 200 MG OR TABS 09/17/2017 GUERLINEAKSHAT LEE CHEESE BLENDER-BC Last Documented On 7 5:12PM By NATANAEL CORDOVA Marielle ; [facility] Results Includes: Results from 10/14/2023 through 10/14/2024 CBC WITH DIFF [facility] [place] Ordered by DAGMAR Weiner on 02/01/2024 [address], [place], [id number] Collected: 02/01/2024 Report ed: 02/01/2024 08:28 tel: Last Documented On 4 11:11AM ; [facility] Reviewed by DAGMAR JARRELL M.D. on 03/31/2024; All test results are final unless otherwise noted. Review Note Provider Name Date Will Discuss results with Patient next visit. DYLAN JARRELL M.D. 03/31/2024 ALC 2.6 None Last Documented On 4 8:41PM ; [facility] Note: Responsible Observer: (HRG) ANC 4.2 None Last Documented On 4 8:41PM ; [facility] Note: Responsible Observer: (HRG) BASO# 0.11 th/uL (0.00 - 0.20) None Last Documented On 4 8:41PM ; [facility] Note: Responsible Observer: (HRG) BASO% 1.4 % (0.0 - 2.0) None Last Documented On 4 8:41PM ; [facility] Note: Responsible Observer: (HRG) CBC WITH DIFF See Note None Last Documented On 4 8:41PM ; [facility] Note: CBC (COMPLETE BLOOD COUNT)Responsi ble Observer: (HRG) DIFF (Y/N) NO None Last Documented On 4 8:41PM ; [facility] Note: Responsible Observer: (HRG) EOS# 0.08 th/uL (0.00 - 0.45) None Last Documented On 4 8:41PM ; [facility] Note: Responsible Observer: (HRG) EOS% 1.0 % (0.0 - 9.0) None Last Documented On 4 8:41PM ; [facility] Note: Responsible Observer: (HRG) HCT 46.0 % (40.0 - 54.0) None Last Documented On 4 8:41PM ; [facility] Note: Responsible Observer: (HRG) HGB 15.4 g/dL (13.5 - 17.5) None Last Documented On 4 8:41PM ; [facility] Note: Responsible Observer: (HRG) IG# 0.05 th/ul (0.00 - 0.10) None Last Documented On 4 8:41PM ; [facility] Note: Responsible Observer: (HRG) IG% 0.6 % (0.0 - 0.5) H (High) Last Documented On 4 8:41PM ; [facility] Note: Responsible Observer: (HRG) LYMPH# 2.66 th/uL (1.00 - 4.80) None Last Documented On 4 8:41PM ; [facility] Note: Responsible Observer: (HRG) LYMPH% 33.9 % (14.0 - 45.0) None Last Documented On 4 8:41PM ; [facility] Note: Responsible Observer: (HRG) MCH 29.3 pg (25.0 - 35.0) None Last Documented On 4 8:41PM ; [facility] Note: Responsible Observer: (HRG) MCHC 33.5 g/dL (31.0 - 36.0) None Last Documented On 4 8:41PM ; [facility] Note: Responsible Observer: (HRG) MCV 87.6 fl (80.0 - 100) None Last Documented On 4 8:41PM ; [facility] Note: Responsible Observer: (HRG) MONO# 0.71 th/uL (0.00 - 0.80) None Last Documented On 4 8:41PM ; [facility] Note: Responsible Observer: (HRG) MONO% 9.1 % (1.0 - 10.0) None Last Documented On 4 8:41PM ; [facility] Note: Responsible Observer: (HRG) MPV 9.4 fl (6.0 - 11.0) None Last Documented On 4 8:41PM ; [facility] Note: Responsible Observer: (HRG) NEUT# 4.23 th/uL None Last Documented On 4 8:41PM ; [facility] Note: Responsible Observer: (HRG) NEUT% 54.0 % (45.0 - 76.0) None Last Documented On 4 8:41PM ; [facility] Note: Responsible Observer: (HRG) NRBC% 0.0 % (0.0 - 0.0) None Last Documented On 4 8:41PM ; [facility] Note: Responsible Observer: (HRG) PLT 325 th/uL (150 - 400) None Last Documented On 4 8:41PM ; [facility] Note: Responsible Observer: (HRG) RBC 5.25 mil/uL (4.50 - 5.90) None Last Documented On 4 8:41PM ; [facility] Note: Responsible Observer: (HRG) RDW 12.6 % (11.0 - 16.0) None Last Documented On 4 8:41PM ; [facility] Note: Responsible Observer: (HRG) WBC 7.8 th/uL (4.5 - 11.0) None Last Documented On 4 8:41PM ; [facility] Note: Responsible Observer: (HRG) CMP [facility] La boratory Ordered by DAGMAR Weiner on 02/01/2024 [address] [facility], [place], [address] Collected: 02/01/2024 Report ed: 02/01/2024 09:22 tel: Last Documented On 4 11:11AM ; [facility] Reviewed by DAGMAR JARRELL M.D. on 03/31/2024; All test results are final unless otherwise noted. Review Note Provider Name Date Will Discuss results with Patient next visit. DYLAN JARRELL M.D. 03/31/2024 A/G RATIO 1.4 (1.1 - 2.2) None Last Documented On 4 8:41PM ; [facility] Note: eGFR INTERPRETATION AGE AVG GFR 2 0-29 116 ml/min/1.73 m2 30-39 107 ml/min/1.73 m2 40-49 99 ml/min/1.73 m2 50-59 93 ml/min/1.73 m2 60-69 85 ml/min/1.73 m2 70+ 75 ml/min/1.73 m2 Chronic Kidney Disease-Less than 60 ml/min Kidney Failure-Less than 15 ml/min eGFR not calculated on patients <18 due to calculation differences. Please see the website below for the pediatric GFR calculator. https://www.kidney.org/professionals/kdoqi/gfr_calculatorped Responsible Observer: (PA) AGE 46 YEARS None Last Documented On 4 8:41PM ; [facility] Note: Responsible Observer: (PA) ALBUMIN 3.9 g/dL (3.5 - 5.0) None Last Documented On 4 8:41PM ; [facility] Note: Responsible Observer: (PA) ALK PHOS 95 IU/L (40 - 150) None Last Documented On 4 8:41PM ; [facility] Note: Responsible Observer: (PA) ALT (SGPT) 15 IU/L (0 - 55) None Last Documented On 4 8:41PM ; [facility] Note: Responsible Observer: (PA) ANION GAP 17.0 mmol/L (8.0 - 16.0) H (High) Last Documented On 4 8:41PM ; [facility] Note: Responsible Observer: (PA) AST (SGOT) 12 IU/L (5 - 34) None Last Documented On 4 8:41PM ; [facility] Note: Responsible Observer: (PA) BILIRUBIN TOT 0.5 mg/dL (0.2 - 1.0) None Last Documented On 4 8:41PM ; [facility] Note: Responsible Observer: (PA) BUN 8 mg/dL (9 - 20) L (Low) Last Documented On 4 8:41PM ; [facility] Note: Responsible Observer: (PA) CALCIUM 9.6 mg/dL (8.9 - 10.0) None Last Documented On 4 8:41PM ; [facility] Note: Responsible Observer: (PA) CHLORIDE 108 mmol/L (98 - 107) H (High) Last Documented On 4 8:41PM ; [facility] Note: Responsible Observer: (PA) CMP See Note None Last Documented On 4 8:41PM ; [facility] Note: COMPREHENSIVE METABOLIC PANELRespo nsible Observer: (RADHA) CREATININE 1.2 mg/dL (0.8 - 1.5) None Last Documented On 4 8:41PM ; [facility] Note: Responsible Observer: (PA) eGFR. 76 mL/min None Last Documented On 4 8:41PM ; [facility] Note: Responsible Observer: (PA) GLOBULIN 2.8 g/dl (2.0 - 4.2) None Last Documented On 4 8:41PM ; [facility] Note: Responsible Observer: (PA) GLUCOSE 103 mg/dL (70 - 105) None Last Documented On 4 8:41PM ; [facility] Note: Responsible Observer: (PA) POTASSIUM 4.0 mmol/L (3.6 - 5.0) None Last Documented On 4 8:41PM ; [facility] Note: Responsible Observer: (PA) SODIUM 140 mmol/L (137 - 145) None Last Documented On 4 8:41PM ; [facility] Note: Responsible Observer: (RADHA) TCO2 19.0 mmol/L (22.0 - 30.0) L (Low) Last Documented On 4 8:41PM ; [facility] Note: Responsible Observer: (RADHA) TOTAL PROTEIN 6.7 g/dL (6.4 - 8.3) None Last Documented On 4 8:41PM ; [facility] Note: Responsible Observer: (RADHA) LIPID PANEL [facility] La boratory Ordered by DAGMAR Weiner on 02/01/2024 [address] [facility], [place], [address] Collected: 02/01/2024 Report ed: 02/01/2024 09:23 tel: Last Documented On 4 11:11AM ; [facility] Reviewed by DAGMAR JARRELL M.D. on 03/31/2024; All test results are final unless otherwise noted. Review Note Provider Name Date Will Discuss results with Patient next visit. DYLAN JARRELL M.D. 03/31/2024 CHOL/HDLC 5.6 (0.0 - 4.8) H (High) Last Documented On 4 8:41PM ; [facility] Note: Responsible Observer: (RADHA) CHOLESTEROL 220 mg/dL (0 - 200) H (High) Last Documented On 4 8:41PM ; [facility] Note: Responsible Observer: (RADHA) HDL 39 mg/dL (29 - 67) None Last Documented On 4 8:41PM ; [facility] Note: Responsible Observer: (RADHA) LDL 137 mg/dL (0 - 130) H (High) Last Documented On 4 8:41PM ; [facility] Note: Coronary Artery Risk Panel Referen ce Values Based on the recommendations of the Heart, Lung and Blood [place] (in mg/dL) Risk Levels = High Borderline Desirable Cholesterol >240 200 - 240 <200 LDL >160 130 - 159 <130 Cholesterol/HDL Ratio Male <= 4.88 Female <= 4.23Responsible Observer: (RADHA) LIPID PANEL See Note None Last Documented On 4 8:41PM ; [facility] Note: LIPID PANELResponsible Observer: ( RADHA) TRIGLYCERIDE 220 mg/dL (1 - 150) H (High) Last Documented On 4 8:41PM ; [facility] Note: Responsible Observer: (RADHA) A1C HGB (GLYCO HEMOGLOBIN) [facility] Ordered by DAGMAR Weiner on 02/01/2024 [address] , [place], [address] Collected: 02/01/2024 Report ed: 02/01/2024 09:23 tel: Last Documented On 4 11:11AM ; [facility] Reviewed by DAGMAR JARRELL M.D. on 03/31/2024; All test results are final unless otherwise noted. Review Note Provider Name Date Will Discuss results with Patient next visit. DYLAN JARRELL M.D. 03/31/2024 A1C HGB (GLYCO HEMOGLOBIN) See Note None Last Documented On 4 8:41PM ; [facility] Note: Glycohemoglobin (HEMOGLOBIN A1C)Re sponsible Observer: (RADHA) Hgb A1c 5.2 %_A1c (4.0 - 6.0) None Last Documented On 4 8:41PM ; [facility] Note: Responsible Observer: (RADHA) MBG 103 mg/dL (65 - 99) H (High) Last Documented On 4 8:41PM ; [facility] Note: *MBG (mean blood glucose) is a stephanie culated estimate of the mean blood glucose itis also refered to as estimated Average Glucose (eAG).*Responsible Observer: (RADHA) [facility] La boratory Ordered by DAGMAR Weiner on 02/01/2024 [address] , [place], [address] Collected: 02/01/2024 Report ed: 02/01/2024 09:41 tel: Last Documented On 4 11:11AM ; [facility] Reviewed by DAGMAR JARRELL M.D. on 03/31/2024; All test results are final unless otherwise noted. Review Note Provider Name Date Will Discuss results with Patient next visit. DYLAN JARRELL M.D. 03/31/2024 TSH 1.9519 uIU/mL (0.3500 - 4.9400) None Last Documented On 4 8:41PM ; [facility] Note: Responsible Observer: (SD) Reported Physicians [facility] Suad jensen Ordered by DAGMAR Weiner on 02/01/[address] [place] [address], [place], [address] Collected: 02/01/2024 Report ed: 02/01/2024 09:41 tel: Last Documented On 4 11:11AM ; [facility] Reviewed by DAGMAR JARRELL M.D. on 03/31/2024; All test results are final unless otherwise noted. Review Note Provider Name Date Will Discuss results with Patient next visit. DYLAN JARRELL M.D. 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 Last Documented On 2 1:37PM ; [facility] Stopped smoking 8 years ago 01/29/2022 Last Documented On 2 1:37PM ; [facility] Chewing tobacco 09/19/2021 Last Documented On 1 2:49PM ; [facility] Tobacco non-user 07/02/2021 Last Documented On 1 10:29AM ; [facility] Current nonsmoker 05/31/2021 Last Documented On 1 10:52AM ; [facility] Former smoker 05/31/2021 Last Documented On 1 10:52AM ; [facility] Not using alcohol 09/19/2019 Last Documented On 9 11:58AM ; [facility] Not using drugs 09/19/2019 Last Documented On 9 11:58AM ; [facility] Smoking status : Former smoker 7 Last Documented On 7 4:57PM ; [facility] Medical History Includes: Medical History in patient's chart No Medical History Recorded Family History Includes: Family History in patient's chart Description Last Updated Children 01/29/2022 Last Documented On 2 1:37PM ; [facility] Review of Systems Review of Systems not supported for this document type No Review of Systems Recorded Mental Status Description No anxiety Functional Status No Functional Status Recorded Physical Exam Physical Exam not supported for this document type No Physical Exam Recorded Allergies Includes: Active, inactive, and resolved Allergies Substance Type Reaction Onset Date Resolved Date Statu s Penicillins Allergy 09/17/2017 Active Last Documented On 3 3:44PM ; [facility] Insurance Includes: Active Insurance Policies Plan Name Member ID Group # Subscriber Relationship Effect afsaneh Dates 1 - [facility] [id number] RAJIV carter Clinical Notes Includes: Signed Clinical Notes starting from 11/21/2022 No Clinical Notes Recorded
--- OUTSIDE RECORDS SUMMARY | 2024-10-14 12:13 | XMS_ITS ---
Author Organization Unknown Address [address], [place] [id number] Phone Care Team Providers Care Transmission System Operator Name Role Phone Ramirez SUE Attending Unavailable OTHER Primary Unavailable Social History Type Status Start Date End Date Code Code Syst em Smoking History Unknown if ever smoked [id number] Sex Male Hospital Discharge Instructions Should you have any questions prior to discharge, please contact a member of your healthcare team. If you have left the hospital and have any questions, please contact your primary care physician. Reason For Referral No Data Found Plan of Treatment No Data Found Encounters Encounter Diagnosis Start Date Code Code Sys tem History and physical examination, pre-employment 10/28 [id number] SNOMED-CT Personal Care Team Section Performer Name Performer Role Active Date Inactive Da te Other Physician PCP - Primary care physician 2022-10-03 7
--- OUTSIDE RECORDS SUMMARY | 2024-10-14 12:13 | XMS_ITS | Clinical Summary ---
Author Organization [facility] Address [address] [place] [address] Phone Care Team Providers Care Clinical Trial Associate Name Role Phone WESLY VARGAS, HESHAM Primary Care Provider [phone] WESLY Christie, DAGMAR Hernández [phone] Reason for Visit and Chief Complaint The Chief Complaint is: check up, no new concerns Problems Includes: Problems addressed during this encounter and other active Problems Current Visit Onset Date Resolved Date Provider Miles martínez Status Adhd, Combined Type 12/17/2020 DAGMAR JARRELL M.D. Active Last Documented On 1:25PM ; [facility] Plan of Treatment No Plan of Treatment Recorded Assessments Includes: Assessments from this encounter Findings - F90.2 - Attention-deficit hyperactivity disorder, combined type - Last Documented On 05/25/2023 3:55PM ; [facility] Medical Equipment - Implanted Devices Includes: Current Devices No Medical Equipment Recorded Medications Includes: Medications discussed during this encounter and other current Medications Discontinued / Stopped on this date DAGMAR JARRELL M.D. on 01/13/2023 Adderall XR 25 MG Oral Capsule Extended Release 24 Hour Provider: DAGMAR JARRELL M.D. Diagnosis: Attention-defici t hyperactivity disorder, combined type Last Documented On 05/25/2023 3:54PM By HESHAM JARRELL MD ; [facility] Current Medications (continue as prescribed) Ibuprofen 800 MG Oral Tablet 09/17/2023 Provider: MERRY Muñiz Diagnosis: Low back pain, u nspecified Take one four times a day as needed/ take with food Last Documented On 3 3:57PM By Merry Murry PA-C ; [facility] Orphenadrine Citrate ER 100 MG Oral Tablet Extended Release 12 Hour 09/17/2023 Provider: MERRY MURRY PA-C Diagnosis: Low back pain, u nspecified 1 tab BID PRN back spasm Last Documented On 3 3:57PM By Merry Murry PA-C ; [facility] Adderall XR 30 MG Oral Capsule Extended Release 24 Hour 08/12/2023 Provider: DAGMAR JARRELL M.D. Diagnosis: Attention-defici t hyperactivity disorder, combined type 1 Capsule every morning Last Documented On 08/12/2023 11:50AM By HESHAM JARRELL MD ; [facility] Medications Administered Includes: Administered Medications from this encounter No Administered Medications Recorded Vital Signs Includes: Vital Signs from this encounter Vital Name 05/25/2023 03:31P Blood Pressure Sitting L 130/82 Pulse Rate-Sitting (bpm) 100 Respiration Rate (breaths/min) 20 Temp-Oral (F) 98.4 Height (in) 69 Weight (lb) 249.4 Body Mass Index 36.8 Body Surface Area 2.3 Oxygen Saturation (%) 98 Last Documented: On 05/25/2023 3:37PM ; [facility] Results Includes: Results discussed during this encounter No Results Recorded For Specified Dates History of Present Illness Includes: History of Present Illness from this encounter COLLIN BANDA is a 32 year old male. Source of patient information was patient. Med working good now no new problems. 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 On 3 3:31PM ; [facility] Stopped smoking 8 years ago 01/29/2022 Last Documented On 3 3:31PM ; [facility] Chewing tobacco 09/19/2021 Last Documented On 3 3:31PM ; [facility] Tobacco non-user 07/02/2021 Last Documented On 3 3:31PM ; [facility] Current nonsmoker 05/31/2021 Last Documented On 3 3:31PM ; [facility] Former smoker 05/31/2021 Last Documented On 3 3:31PM ; [facility] Not using alcohol 09/19/2019 Last Documented On 3 3:31PM ; [facility] Not using drugs 09/19/2019 Last Documented On 3 3:31PM ; [facility] Smoking status : Former smoker 7 Last Documented On 3 3:31PM ; [facility] Procedures and Surgical History Includes: Procedures from this encounter Procedures Code Diagnosis Performing Provider Service L ocation Service Date continue current medication Last Documented On 3 3:55PM ; [facility] use of tobacco assessment performed 1000F Last Documented On 3 3:37PM ; [facility] standardized depression screening: negative for symptoms 3351F Last Documented On 3 3:31PM ; [facility] review of medications documented 1160F Last Documented On 3 3:37PM ; [facility] assessment of suicide risk performed Last Documented On 3 3:31PM ; [facility] screening for adult depression: impressi on and score two Last Documented On 3 3:31PM ; [facility] Medical History Includes: Medical History addressed during this encounter No Medical History Recorded Family History Includes: Family History addressed during this encounter Description Last Updated Children 01/29/2022 Last Documented On 3 3:31PM ; [facility] Review of Systems Includes: Review of Systems from this encounter Systemic: No systemic symptoms. Head: No headache. Cardiovascular: No cardiovascular symptoms and no chest pain or discomfort. Pulmonary: No pulmonary symptoms and no shortness of breath. Gastrointestinal: No gastrointestinal symptoms. Genitourinary: No genitourinary symptoms. Neurological: No neurological symptoms. Dizziness. Psychological: No psychological symptoms. Mental Status Includes: Mental Status from this [...] Active Last Documented On 3 3:44PM ; [facility] Encounters Encounter Provider Location Date Check-In Time Check-Out Time Diagnosis CHECK UP DAGMAR JARRELL M.D. [facility] 05/25/20 23 3:07PM 3:53PM Adhd, Combined Type Insurance Includes: Active Insurance Policies Plan Name Member ID Group # Subscriber Relationship Effect afsaneh Dates 1 - [facility] [id number] RAJIV BANDA S [facility] Clinical Notes Includes: Clinical Notes from this encounter * Progress note Date Encounter Last Documented by 05/25/2023 CHECK UP Last documented on 05/25/2023; 3:55 PM, DAGMAR JARRELL M.D.; [facility] Active Problems & Conditions - F90.2 - Adhd, Combined Type Chief Complaint The Chief Complaint is: Check up, no new concerns. History of Present Illness RAJIV BANDA is a 32 year old male. Source of patient information was patient. Med working good now no new problems. - Allergy list reviewed - Medication list reviewed - No systemic symptoms - No chronic/recurring headaches - No anorexia - and No nausea - No tics - Mood was euthymic - No insomnia - No decreased functioning ability - No problems with one's peer group - No socially inappropriate behavior Current Medication - Adderall XR 30 MG Oral Capsule Extended Release 24 Hour 1 Capsule every morning, 28 days, 0 refills - Ibuprofen 800 MG Oral Tablet Take one four times a day as needed/ take with food, 30 days, 0 refills - Ibuprofen 800 MG Oral Tablet Take one four times a day as needed/ take with food, 30 days, 0 refills Social History Tobacco use: Not a current smoker. Former smoker stopped smoking 8 years ago, current nonsmoker, and chewing tobacco. Smoking status: Former smoker. Alcohol: Not using alcohol. Drug Use: Not using drugs. 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 Marital: Currently . Allergies - Penicillins Family History Children Review Of Systems Systemic: No systemic symptoms. Head: No headache. Cardiovascular: No cardiovascular symptoms and no chest pain or discomfort. Pulmonary: No pulmonary symptoms and no shortness of breath. Gastrointestinal: No gastrointestinal symptoms. Genitourinary: No genitourinary symptoms. Neurological: No neurological symptoms. Dizziness. Psychological: No psychological symptoms. Physical Findings - Vitals taken 05/25/2023 03:31 pm BP-Sitting L 130/82 mmHg 100 - 120/60 - 80 Pulse Rate-Sitting 100 bpm 50 - 100 Respiration Rate 20 per min 18 - 26 Temp-Oral 98.4 [...] Extraocular Movements: - Normal. Pupils: - PERRLA. Pharynx: Oropharynx: - Normal. Lymph Nodes: - Normal. Lungs: - Respiratory movements were normal. - Clear to auscultation. Cardiovascular: Heart Rate And Rhythm: - Normal. Heart Sounds: - Normal. Murmurs: - No murmurs were heard. Abdomen: Auscultation: - Bowel sounds were normal. Palpation: - Abdominal non-tender. Neurological: Speech: - Normal. Psychiatric: Psychiatric: Value Normal Range PHQ9 score: 2 Appearance: - Normal. Mood: - Euthymic. Affect: - Normal. Thought Processes: - Not impaired. Thought Content: - Revealed no impairment. Assessment - F90.2 - Attention-deficit hyperactivity disorder, combined type Therapy - Continue current medication. - Assessment of suicide risk performed Plan StartCited - Other Follow-up Follow up in 3 months EndCited Practice Management Use of tobacco assessment performed Review of medications documented; Standardized depression screening: negative for symptoms and for adult impression and score two.
--- OUTSIDE RECORDS SUMMARY | 2024-10-14 12:14 | XMS_ITS | Clinical Summary ---
Author Organization [facility] Address [address] [place] [address] Phone Care Team Providers Care Educational Fundraising Director Name Role Phone WESLY VARGAS, HESHAM Primary Care Provider [phone] WESLY Christie, DAGMAR Hernández [phone] Reason for Visit and Chief Complaint The Chief Complaint is: check up, no new concerns Problems Includes: Problems addressed during this encounter and other active Problems Current Visit Onset Date Resolved Date Provider Miles martínez Status Adhd, Combined Type 12/17/2020 DAGMAR JARRELL M.D. Active Last Documented On 1:25PM ; [facility] Plan of Treatment No Plan of Treatment Recorded Assessments Includes: Assessments from this encounter Findings - F90.2 - Attention-deficit hyperactivity disorder, combined type - Last Documented On 05/25/2023 3:55PM ; [facility] Medical Equipment - Implanted Devices Includes: Current [...] 05/25/2023 3:54PM By HESHAM JARRELL MD ; [facility] Current Medications (continue as prescribed) Ibuprofen 800 MG Oral Tablet 09/17/2023 Provider: MERRY Muñiz Diagnosis: Low back pain, u nspecified Take one four times a day as needed/ take with food Last Documented On 3 3:57PM By Merry Murry PA-C ; [facility] Orphenadrine Citrate ER 100 MG Oral Tablet Extended Release 12 Hour 09/17/2023 Provider: MERRY MURRY PA-C Diagnosis: Low back pain, u nspecified 1 tab BID PRN back spasm Last Documented On 3 3:57PM By Merry Murry PA-C ; [facility] Adderall XR 30 MG Oral Capsule Extended Release 24 Hour 08/12/2023 Provider: DAGMAR JARRELL M.D. 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 Last Documented On 3 3:31PM ; [facility] Stopped smoking 8 years ago 01/29/2022 Last Documented On 3 3:31PM ; [facility] Chewing tobacco 09/19/2021 Last Documented On 3 3:31PM ; [facility] Tobacco non-user 07/02/2021 Last Documented On 3 3:31PM ; [facility] Current nonsmoker 05/31/2021 Last Documented On 3 3:31PM ; [facility] Former smoker 05/31/2021 Last Documented On 3 3:31PM ; [facility] Not using alcohol 09/19/2019 Last Documented On 3 3:31PM ; [facility] Not using drugs 09/19/2019 Last Documented On 3 3:31PM ; [facility] Smoking status : Former smoker 7 Last Documented On 3 3:31PM ; [facility] Procedures and Surgical History Includes: Procedures from this encounter Procedures Code Diagnosis Performing Provider Service L ocation Service Date continue current medication Last Documented On 3 3:55PM ; [facility] use of tobacco assessment performed 1000F Last Documented On 3 3:37PM ; [facility] standardized depression screening: negative for symptoms 3351F Last Documented On 3 3:31PM ; [facility] review of medications documented 1160F Last Documented On 3 3:37PM ; [facility] assessment of suicide risk performed Last Documented On 3 3:31PM ; [facility] screening for adult depression: impressi on and score two Last Documented On 3 3:31PM ; [facility] Medical History Includes: Medical History addressed during this encounter No Medical History Recorded Family History Includes: Family History addressed during this encounter Description Last Updated Children 01/29/2022 Last Documented On 3 3:31PM ; [facility] Review of Systems Includes: Review of [...] Active Last Documented On 3 3:44PM ; [facility] Encounters Encounter Provider Location Date Check-In Time Check-Out Time Diagnosis CHECK UP DAGMAR JARRELL M.D. [facility] 05/25/20 23 3:07PM 3:53PM Adhd, Combined Type Insurance Includes: Active Insurance Policies Plan Name Member ID Group # Subscriber Relationship Effect afsaneh Dates 1 - [facility] [id number] RAJIV BANDA [facility] Clinical Notes Includes: Clinical Notes from this encounter * Progress note Date Encounter Last Documented by 05/25/2023 CHECK UP Last documented on 05/25/2023; 3:55 PM, DAGMAR JARRELL M.D.; [facility] Active Problems & Conditions [...] Drug Use: Not using drugs. 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 Marital: Currently . Allergies - Penicillins Family [...]
--- OUTSIDE RECORDS SUMMARY | 2024-10-14 12:14 | XMS_ITS | Clinical Summary ---
Author Organization [facility] Address [address] [place] [address] Phone Care Team Providers Care Financial Sales Associate Name Role Phone WESLY VARGAS, HESHAM Primary Care Provider [phone] WESLY Christie, DAGMAR Hernández [phone] Reason for Visit and Chief Complaint The Chief Complaint is: Pt bent over to pickle maker a garden hose, felt a pop [...] Active Last Documented On 1 1:25PM ; [facility] Plan of Treatment Toradol today. May take tylenol PRN Different muscle relaxer rx to try. Continue alternating ice and heat RTC PRN - Last Documented On 09/17/2023 5:09PM ; [facility] Pending Tests Order Diagnosis Results Due Ordering P rovider Injections Toradol Low back pain, unspecified 09/17/23 MERRY GARCIA-C Last Documented On 3 5:09PM ; [facility] Injections Theraputic Injection Low back pa in, unspecified 09/17/23 MERRY GARCIA-C Last Documented On 3 5:09PM ; [facility] Instructions to patient Intervention and counseling on cessation of tobacco use Last Documented On 3 3:37PM ; [facility] Assessments Includes: Assessments from this encounter Findings - [M54.50 - Low back pain, unspecified] Lumbago - Last Documented On 09/17/2023 5:09PM ; [facility] Instructions Includes: Instructions from this encounter Instructions to patient Intervention and counseling on cessation of tobacco use Last Documented On 3 3:37PM ; [facility] Medical Equipment - Implanted Devices Includes: Current [...] day as needed/ take with food Pharmacy: [facility]) - [address], [id number] - Last Documented On 3 3:57PM By Merry Murry PA-C ; [facility] Orphenadrine Citrate ER 100 MG Oral Tablet Extended Release 12 Hour Provider: MERRY MURRY PA-C 7 day supply: 14 tablet, 0 refills Diagnosis: Low back pain, unspecified 1 tab BID PRN back spasm Pharmacy: [facility]) - [address] [facility], [id number] - Last Documented On 3 3:57PM By Merry Murry PA-C ; [facility] Current Medications (continue as prescribed) Adderall XR 30 MG Oral Capsule Extended Release 24 Hour 08/12/2023 Provider: DAGMAR JARRELL M.D. Diagnosis: Attention-defici t hyperactivity disorder, combined type 1 Capsule every morning Last Documented On 08/12/2023 11:50AM By HESHAM JARRELL MD ; [facility] Medications Administered Includes: Administered Medications from this encounter No Administered Medications Recorded Vital Signs Includes: Vital Signs from this encounter Vital Name 09/17/2023 03:31P Blood Pressure Sitting R 132/80 Pulse Rate-Sitting (bpm) 92 Respiration Rate (breaths/min) 18 Height (in) 69 Weight (lb) 247.375 Body Mass Index 36.5 Body Surface Area 2.3 Oxygen Saturation (%) 97 Last Documented: On 09/17/2023 3:35PM ; [facility] Results Includes: Results discussed during [...] 01/29/2022 Last Documented On 3 3:30PM ; [facility] 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 Last Documented On 3 3:30PM ; [facility] Stopped smoking 8 years ago 01/29/2022 Last Documented On 3 3:30PM ; [facility] Chewing tobacco 09/19/2021 Last Documented On 3 3:30PM ; [facility] Tobacco non-user 07/02/2021 Last Documented On 3 3:30PM ; [facility] Current nonsmoker 05/31/2021 Last Documented On 3 3:30PM ; [facility] Former smoker 05/31/2021 Last Documented On 3 3:30PM ; [facility] Smoking Status Unknown Procedures and Surgical History Includes: Procedures from this encounter Procedures Code Diagnosis Performing Provider Service L ocation Service Date intervention and counseling on cessation of tobacco use 4000F Last Documented On 3 3:37PM ; [facility] use of tobacco assessment performed 1000F Last Documented On 3 3:37PM ; [facility] review of medications documented 1160F Last Documented On 3 3:37PM ; [facility] Medical History Includes: Medical History addressed during this encounter No Medical History Recorded Family History Includes: Family History addressed during this encounter Description Last Updated Children 01/29/2022 Last Documented On 3 3:30PM ; [facility] Review of Systems Includes: Review of Systems [...] Active Last Documented On 3 3:44PM ; [facility] Encounters Encounter Provider Location Date Check-In Time Check- Out Time Diagnosis PROBLEM VISIT MERRY MURRY PA-C [facility]- 3 3:10PM 4:05PM Lumbago Insurance Includes: Active Insurance Policies Plan Name Member ID Group # Subscriber Relationship Effect afsaneh Dates 1 - [facility] [id number] RAJIV carter Clinical Notes Includes: Clinical Notes from this encounter * Progress note Date Encounter Last Documented by 09/17/2023 PROBLEM VISIT Last documented on 09/17/2023; 5:09 PM, MERRY MURRY PA-C; [facility] Active Problems & Conditions - F90.2 - Adhd, Combined Type Chief Complaint The Chief Complaint is: Pt bent over to pickle maker a garden hose, felt a pop [...] current nonsmoker, and chewing tobacco. 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 Allergies - Penicillins Family [...]
--- OUTSIDE RECORDS SUMMARY | 2024-10-14 12:14 | XMS_ITS | Clinical Summary ---
Author Organization [facility] Address [address] [place] [address] Phone Care Team Providers Care Curtain Worker Name Role Phone WESLY VARGAS, HESHAM Primary Care Provider [phone] WESLY Christie, DAGMAR Hernández [phone] Reason for Visit and Chief Complaint The Chief Complaint is: Checkup, no concerns Problems Includes: Problems addressed during this encounter and other active Problems Current Visit Onset Date Resolved Date Provider Miles martínez Status Adhd, Combined Type 12/17/2020 DAGMAR JARRELL M.D. Active Last Documented On 1 1:25PM ; [facility] Plan of Treatment No Plan of Treatment Recorded Assessments Includes: Assessments from this encounter Findings - F90.2 - Attention-deficit hyperactivity disorder, combined type - Last Documented On 02/23/2023 3:56PM ; [facility] Medical Equipment - Implanted Devices Includes: [...] 3 3:57PM By Merry Murry PA-C ; [facility] Orphenadrine Citrate ER 100 MG Oral Tablet Extended Release 12 Hour 09/17/2023 Provider: MERRY MURRY PA-C Diagnosis: Low back pain, u nspecified 1 tab BID PRN back spasm Last Documented On 3 3:57PM By Merry Murry PA-C ; [facility] Adderall XR 30 MG Oral Capsule Extended Release 24 Hour 08/12/2023 Provider: DAGMAR JARRELL M.D. Diagnosis: Attention-defici t hyperactivity disorder, combined type 1 Capsule every morning Last Documented On 08/12/2023 11:50AM By HESHAM JARRELL MD ; [facility] Medications Administered Includes: Administered Medications from [...] 98 Last Documented: On 02/23/2023 3:23PM ; [facility] Results Includes: Results discussed during this encounter CBC WITH DIFF [facility] [place] [facility] Ordered by DAGMAR Weiner on 02/06/2023 [address] [facility], [place], [address] Collected: 02/06/2023 Report ed: 02/06/2023 08:54 tel: Last Documented On 3 3:13PM ; [facility] Reviewed by DAGMAR JARRELL M.D. on 02/06/2023; All test results are final unless otherwise noted. Review Note Provider Name Date Will Discuss results with Patient next visit. DYLAN JARRELL M.D. 02/06/2023 ALC 2.6 None Last Documented On 3 10:31AM ; [facility] Note: Responsible Observer: (HRG) ANC 4.8 None Last Documented On 3 10:31AM ; [facility] Note: Responsible Observer: (HRG) BASO# 0.1 th/uL (0.0 - 0.2) None Last Documented On 3 10:31AM ; [facility] Note: Responsible Observer: (HRG) BASO% 1.0 % (0.0 - 2.0) None Last Documented On 3 10:31AM ; [facility] Note: Responsible Observer: (HRG) CBC WITH DIFF See Note None Last Documented On 3 10:31AM ; [facility] Note: CBC (COMPLETE BLOOD COUNT)Responsi ble Observer: (HRG) DIFF (Y/N) NO None Last Documented On 3 10:31AM ; [facility] Note: Responsible Observer: (HRG) EOS# 0.04 th/uL (0.00 - 0.45) None Last Documented On 3 10:31AM ; [facility] Note: Responsible Observer: (HRG) EOS% 0.5 % (0.0 - 9.0) None Last Documented On 10:31AM ; [facility] Note: Responsible Observer: (HRG) HCT 45.6 % (40.0 - 54.0) None Last Documented On 10:31AM ; [facility] Note: Responsible Observer: (HRG) HGB 15.4 g/dL (13.5 - 17.5) None Last Documented On 10:31AM ; [facility] Note: Responsible Observer: (HRG) IG% 0.4 % (0.0 - 0.5) None Last Documented On 10:31AM ; [facility] Note: Responsible Observer: (HRG) LYMPH# 2.58 th/uL (1.00 - 4.80) None Last Documented On 3 10:31AM ; [facility] Note: Responsible Observer: (HRG) LYMPH% 31.1 % (14.0 - 45.0) None Last Documented On 10:31AM ; [facility] Note: Responsible Observer: (HRG) MCH 30.1 pg (25.0 - 35.0) None Last Documented On 3 10:31AM ; [facility] Note: Responsible Observer: (HRG) MCHC 33.8 g/dL (31.0 - 36.0) None Last Documented On 3 10:31AM ; [facility] Note: Responsible Observer: (HRG) MCV 89.2 fl (80.0 - 100) None Last Documented On 3 10:31AM ; [facility] Note: Responsible Observer: (HRG) MONO# 0.73 th/uL (0.00 - 0.80) None Last Documented On 3 10:31AM ; [facility] Note: Responsible Observer: (HRG) MONO% 8.8 % (1.0 - 10.0) None Last Documented On 3 10:31AM ; [facility] Note: Responsible Observer: (HRG) MPV 9.3 fl (6.0 - 11.0) None Last Documented On 3 10:31AM ; [facility] Note: Responsible Observer: (HRG) NEUT# 4.84 th/uL None Last Documented On 3 10:31AM ; [facility] Note: Responsible Observer: (HRG) NEUT% 58.2 % (45.0 - 76.0) None Last Documented On 3 10:31AM ; [facility] Note: Responsible Observer: (HRG) NRBC% 0.0 % (0.0 - 0.0) None Last Documented On 3 10:31AM ; [facility] Note: Responsible Observer: (HRG) PLT 346 th/uL (150 - 400) None Last Documented On 3 10:31AM ; [facility] Note: Responsible Observer: (HRG) RBC 5.11 mil/uL (4.50 - 5.90) None Last Documented On 3 10:31AM ; [facility] Note: Responsible Observer: (HRG) RDW 12.3 % (11.0 - 16.0) None Last Documented On 3 10:31AM ; [facility] Note: Responsible Observer: (HRG) WBC 8.3 th/uL (4.5 - 11.0) None Last Documented On 3 10:31AM ; [facility] Note: Responsible Observer: (HRG) A1C HGB (GLYCO HEMOGLOBIN) [facility] Ordered by DAGMAR Weiner on 02/06/2023 [address] [facility], [place], [address] Collected: 02/06/2023 Report ed: 02/06/2023 09:55 tel: Last Documented On 3 3:13PM ; [facility] Reviewed by DAGMAR JARRELL M.D. on 02/06/2023; All test results are final unless otherwise noted. Review Note Provider Name Date Will Discuss results with Patient next visit. DYLAN JARRELL M.D. 02/06/2023 A1C HGB (GLYCO HEMOGLOBIN) See Note None Last Documented On 10:31AM ; [facility] Note: Glycohemoglobin (HEMOGLOBIN A1C)Re sponsible Observer: (NOV) Hgb A1c 5.3 %_A1c (4.0 - 6.0) None Last Documented On 10:31AM ; [facility] Note: Responsible Observer: (NOV) MBG 105 mg/dL (65 - 99) H (High) Last Documented On 3 10:31AM ; [facility] Note: *MBG (mean blood glucose) is a stephanie culated estimate of the mean blood glucose itis also refered to as estimated Average Glucose (eAG).*Responsible Observer: (NOV) [facility] La [facility]atory Ordered by DAGMAR Weiner on 02/06/2023 [address] [facility], [place], [address] Collected: 02/06/2023 Report ed: 02/06/2023 09:56 tel: Last Documented On 3 3:13PM ; [facility] Reviewed by DAGMAR JARRELL M.D. on 02/06/2023; All test results are final unless otherwise noted. Review Note Provider Name Date Will Discuss results with Patient next visit. DYLAN JARRELL M.D. 02/06/2023 A/G RATIO 1.6 (1.1 - 2.2) None Last Documented On 3 10:31AM ; [facility] Note: Responsible Observer: (NOV) AGE 45 YEARS None Last Documented On 3 10:31AM ; [facility] Note: Responsible Observer: (NOV) ALBUMIN 4.2 g/dL (3.5 - 5.0) None Last Documented On 3 10:31AM ; [facility] Note: Responsible Observer: (NOV) ALK PHOS 82 IU/L (40 - 150) None Last Documented On 3 10:31AM ; [facility] Note: Responsible Observer: (NOV) ALT (SGPT) 14 IU/L (0 - 55) None Last Documented On 3 10:31AM ; [facility] Note: Responsible Observer: (NOV) ANION GAP 14.2 mmol/L (8.0 - 16.0) None Last Documented On 3 10:31AM ; [facility] Note: Responsible Observer: (NOV) AST (SGOT) 12 IU/L (5 - 34) None Last Documented On 3 10:31AM ; [facility] Note: Responsible Observer: (NOV) BILIRUBIN TOT 0.7 mg/dL (0.2 - 1.0) None Last Documented On 3 10:31AM ; [facility] Note: Responsible Observer: (NOV) BUN 11 mg/dL (9 - 20) None Last Documented On 3 10:31AM ; [facility] Note: Responsible Observer: (NOV) CALCIUM 9.7 mg/dL (8.9 - 10.0) None Last Documented On 3 10:31AM ; [facility] Note: Responsible Observer: (NOV) CHLORIDE 108 mmol/L (98 - 107) H (High) Last Documented On 3 10:31AM ; [facility] Note: Responsible Observer: (NOV) CMP See Note None Last Documented On 3 10:31AM ; [facility] Note: COMPREHENSIVE METABOLIC PANELRespo nsible Observer: (NOV) CREATININE 1.2 mg/dL (0.8 - 1.5) None Last Documented On 3 10:31AM ; [facility] Note: Responsible Observer: (NOV) GFR Afr-Am 85 ml/min None Last Documented On 3 10:31AM ; [facility] Note: Responsible Observer: (NOV) GFR Non-AfrAm 70 ml/min None Last Documented On 3 10:31AM ; [facility] Note: GFR INTERPRETATION AGE AVG GFR 20 -29 116 ml/min/1.73 m2 30-39 107 ml/min/1.73 m2 40-49 99 ml/min/1.73 m2 50-59 93 ml/min/1.73 m2 60-69 85 ml/min/1.73 m2 70+ 75 ml/min/1.73 m2 Chronic Kidney Disease-Less than 60 ml/min Kidney Failure-Less than 15 ml/minResponsible Observer: (NOV) GLOBULIN 2.6 g/dl (2.0 - 4.2) None Last Documented On 3 10:31AM ; [facility] Note: Responsible Observer: (NOV) GLUCOSE 100 mg/dL (65 - 99) H (High) Last Documented On 3 10:31AM ; [facility] Note: Responsible Observer: (NOV) POTASSIUM 4.2 mmol/L (3.6 - 5.0) None Last Documented On 3 10:31AM ; [facility] Note: Responsible Observer: (NOV) SODIUM 141 mmol/L (137 - 145) None Last Documented On 3 10:31AM ; [facility] Note: Responsible Observer: (NOV) TCO2 23.0 mmol/L (22.0 - 30.0) None Last Documented On 3 10:31AM ; [facility] Note: Responsible Observer: (NOV) TOTAL PROTEIN 6.8 g/dL (6.4 - 8.3) None Last Documented On 3 10:31AM ; [facility] Note: Responsible Observer: (NOV) LIPID PANEL [facility] [place] [facility]atory Ordered by DAGMAR Weiner on 02/06/2023 [address] [facility], [place], [address] Collected: 02/06/2023 Report ed: 02/06/2023 09:56 tel:[phone] Last Documented On 3 3:13PM ; [facility] Reviewed by DAGMAR JARRELL M.D. on 02/06/2023; All test results are final unless otherwise noted. Review Note Provider Name Date Will Discuss results with Patient next visit. DYLAN JARRELL M.D. 02/06/2023 CHOL/HDLC 5.7 (0.0 - 4.8) H (High) Last Documented On 3 10:31AM ; [facility] Note: Responsible Observer: (NOV) CHOLESTEROL 206 mg/dL (0 - 200) H (High) Last Documented On 3 10:31AM ; [facility] Note: Responsible Observer: (NOV) HDL 36 mg/dL (29 - 67) None Last Documented On 10:31AM ; [facility] Note: Responsible Observer: (NOV) LDL 144 mg/dL (0 - 130) H (High) Last Documented On 10:31AM ; [facility] Note: Coronary Artery Risk Panel Referen ce Values Based on the recommendations of the Heart, Lung and Blood [place] (in mg/dL) Risk Levels = High Borderline Desirable Cholesterol >240 200 - 240 <200 LDL >160 130 - 159 <130 Cholesterol/HDL Ratio Male <= 4.88 Female <= 4.23Responsible Observer: (NOV) LIPID PANEL See Note None Last Documented On 3 10:31AM ; [facility] Note: LIPID PANELResponsible Observer: ( NOV) TRIGLYCERIDE 131 mg/dL (1 - 150) None Last Documented On 10:31AM ; [facility] Note: Responsible Observer: (NOV) TSH [facility] La boratory Ordered by DAGMAR Weiner on 02/06/2023 [address] [facility], [place], [address] Collected: 02/06/2023 Report ed: 02/06/2023 10:29 tel: Last Documented On 3:13PM ; [facility] Reviewed by DAGMAR JARRELL M.D. on 02/06/2023; All test results are final unless otherwise noted. Review Note Provider Name Date Will Discuss results with Patient next visit. DYLAN JARRELL M.D. 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 Last Documented On 3 3:19PM ; [facility] Stopped smoking 8 years ago 01/29/2022 Last Documented On 3 3:19PM ; [facility] Chewing tobacco 09/19/2021 Last Documented On 3 3:19PM ; [facility] Current nonsmoker 05/31/2021 Last Documented On 3 3:19PM ; [facility] Former smoker 05/31/2021 Last Documented On 3 3:19PM ; [facility] Not using alcohol 09/19/2019 Last Documented On 3 3:19PM ; [facility] Not using drugs 09/19/2019 Last Documented On 3 3:19PM ; [facility] Smoking status : Former smoker 7 Last Documented On 3 3:19PM ; [facility] Procedures and Surgical History Includes: Procedures from this encounter Procedures Code Diagnosis Performing Provider Service L ocation Service Date continue current medication Last Documented On 3 3:56PM ; [facility] use of tobacco assessment performed 1000F Last Documented On 3 3:23PM ; [facility] standardized depression screening: negative for symptoms 3351F Last Documented On 3 3:19PM ; [facility] review of medications documented 1160F Last Documented On 3 3:23PM ; [facility] assessment of suicide risk performed Last Documented On 3 3:19PM ; [facility] screening for adult depression: impressi on and score one Last Documented On 3 3:19PM ; [facility] Medical History Includes: Medical History addressed during this encounter No Medical History Recorded Family History Includes: Family History addressed during this encounter Description Last Updated Children 01/29/2022 Last Documented On 3 3:19PM ; [facility] Review of Systems Includes: Review of [...] Active Last Documented On 3 3:44PM ; [facility] Encounters Encounter Provider Location Date Check-In Time Check-Out Time Diagnosis CHECK UP DAGMAR JARRELL M.D. [facility] 02/24/20 23 3:30PM 3:50PM Adhd, Combined Type Insurance Includes: Active Insurance Policies Plan Name Member ID Group # Subscriber Relationship Effect afsaneh Dates 1 - [facility] [id number] RAJIV carter Clinical Notes Includes: Clinical Notes from this encounter * Progress note Date Encounter Last Documented by 02/23/2023 CHECK UP Last documented on 02/23/2023; 3:56 PM, DAGMAR JARRELL M.D.; [facility] Active Problems & Conditions - F90.2 [...] Drug Use: Not using drugs. 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 Marital: Currently . Allergies - Penicillins Family [...]
--- OUTSIDE RECORDS SUMMARY | 2024-10-14 12:14 | XMS_ITS ---
Author Organization Unknown Address [address], [place] [id number] Phone Care Team Providers Care Weights And Measures Sealer Name Role Phone Ramirez SUE Attending Unavailable OTHER Primary Unavailable Social History Type Status Start Date End Date Code Code Syst em Smoking History Unknown if ever smoked [id number] Sex Male Hospital Discharge Instructions [...] tem History and physical examination, pre-employment 10/28 [id number] SNOMED-CT Personal Care Team Section Performer Name Performer Role Active Date Inactive Da te Other Physician PCP - Primary care physician 2022-10-03 7
--- OUTSIDE RECORDS SUMMARY | 2024-10-14 12:14 | XMS_ITS | Clinical Summary ---
Author Organization [facility] Address [address] [place] [address] Phone Care Team Providers Care Senior Project Manager Engineering Name Role Phone HESHAM JARRELL MD Primary Care Provider [phone] WESLY Christie, DAGMAR Hernández [phone] Reason for Visit and Chief Complaint The Chief Complaint is: Checkup, no concerns Problems Includes: Problems addressed during this encounter and other active Problems Current Visit Onset Date Resolved Date Provider Miles martínez Status Adhd, Combined Type 12/17/2020 DAGMAR JARRELL M.D. Active Last Documented On 1:25PM ; [facility] Plan of Treatment Change to adderall XR at 30 mg. - Last Documented On 01/22/2023 4:00PM ; [facility] Assessments Includes: Assessments from this encounter Findings - F90.2 - Attention-deficit hyperactivity disorder, combined type - Last Documented On 01/22/2023 4:00PM ; [facility] Medical Equipment - Implanted Devices [...] combined type 1 Capsule every morning Pharmacy: [address], [id number] - Last Documented On 02/20/2023 10:36AM By HESHAM JARRELL MD ; [facility] Current Medications (continue as prescribed) Ibuprofen 800 MG Oral Tablet 09/17/2023 Provider: MERRY Muñiz Diagnosis: Low back pain, u nspecified Take one four times a day as needed/ take with food Last Documented On 3 3:57PM By Merry Murry PA-C ; [facility] Orphenadrine Citrate ER 100 MG Oral Tablet Extended Release 12 Hour 09/17/2023 Provider: MERRY MURRY PA-C Diagnosis: Low back pain, u nspecified 1 tab BID PRN back spasm Last Documented On 3 3:57PM By Merry Murry PA-C ; [facility] Adderall XR 30 MG Oral Capsule Extended Release 24 Hour 08/12/2023 Provider: DAGMAR JARRELL M.D. 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 On 3 3:30PM ; [facility] Stopped smoking 8 years ago 01/29/2022 Last Documented On 3 3:30PM ; [facility] Chewing tobacco 09/19/2021 Last Documented On 3 3:30PM ; [facility] Tobacco non-user 07/02/2021 Last Documented On 3 3:30PM ; [facility] Current nonsmoker 05/31/2021 Last Documented On 3 3:30PM ; [facility] Former smoker 05/31/2021 Last Documented On 3 3:30PM ; [facility] Not using alcohol 09/19/2019 Last Documented On 3 3:30PM ; [facility] Not using drugs 09/19/2019 Last Documented On 3 3:30PM ; [facility] Smoking status : Former smoker 7 Last Documented On 3 3:30PM ; [facility] Procedures and Surgical History Includes: Procedures from this encounter Procedures Code Diagnosis Performing Provider Service L ocation Service Date use of tobacco assessment performed 1000F Last Documented On 3 3:33PM ; [facility] standardized depression screening: negative for symptoms 3351F Last Documented On 3 3:30PM ; [facility] review of medications documented 1160F Last Documented On 3 3:33PM ; [facility] assessment of suicide risk performed Last Documented On 3 3:30PM ; [facility] screening for adult depression: impressi on and score one Last Documented On 3 3:30PM ; [facility] Medical History Includes: Medical History addressed during this encounter No Medical History Recorded Family History Includes: Family History addressed during this encounter Description Last Updated Children 01/29/2022 Last Documented On 3 3:30PM ; [facility] Review of Systems Includes: Review [...] Active Last Documented On 3 3:44PM ; [facility] Encounters Encounter Provider Location Date Check-In Time Check-Out Time Diagnosis CHECK UP DAGMAR JARRELL M.D. [facility] 01/23/20 23 3:18PM 3:47PM Adhd, Combined Type Insurance Includes: Active Insurance Policies Plan Name Member ID Group # Subscriber Relationship Effect afsaneh Dates 1 - [facility] [id number] RAJIV BANDA S [facility] Clinical Notes Includes: Clinical Notes from this encounter * Progress note Date Encounter Last Documented by 01/22/2023 CHECK UP Last documented on 01/22/2023; 4:00 PM, DAGMAR JARRELL M.D.; [facility] Active Problems & Conditions - [...] Drug Use: Not using drugs. 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 Allergies - Penicillins Family [...]
--- OUTSIDE RECORDS SUMMARY | 2024-10-14 12:14 | XMS_ITS ---
Care Plan - [facility] Created on: October 14, 2024 RAJIV BANDA : 1990 Sex: Male Author Organization [facility] Address [address] [place] [address] Phone Care Team Providers Care Data Entry Name Role Phone WESLY VARGAS, HESHAM Primary Care Provider [phone] WESLY Christie, DAGMAR Hernández [phone]
--- OUTSIDE RECORDS SUMMARY | 2024-10-14 12:14 | XMS_ITS ---
Author Organization [facility] Address [address] [place] [address] Phone Care Team Providers Care Superintendent Local Name Role Phone WESLY VARGAS, HESHAM Primary Care Provider [phone] WESLY Christie, DAGMAR Hernández [phone] Problems Includes: Active, inactive, and resolved Problems All Visits Onset Date Resolved Date Provider Condition S tatus Adhd, Combined Type 12/17/2020 DAGMAR JARRELL M.D. Active Last Documented On 1 1:25PM ; [facility] Plan of Treatment Findings Encounter Date change to adderall XR at 30 mg CHECK UP with HESHAM JARRELL M.D. 01/22/2023 Last Documented On 3 4:00PM ; [facility] Continue current medication CHECK UP with SANDRA JARRELL M.D. 01/29/2022 Last Documented On 2 1:37PM ; [facility] Monitor Blood Pressure at home CHECK UP with HESHAM JARRELL M.D. 01/29/2022 Last Documented On 2 1:37PM ; [facility] Ordered patient to call if jorge luis null develops CHECK UP with DAGMAR JARRELL M.D. 01/29/2022 Last Documented On 2 1:37PM ; [facility] Ordered return to the clinic if condition worsens or new symptoms arise CHECK UP with DAGMAR JARRELL M.D. 01/29/2022 Last Documented On 2 1:37PM ; [facility] Ordered patient to call if p roblem develops PROBLEM VISIT with DAGMAR JARRELL M.D. 07/02/2021 Last Documented On 1 10:29AM ; [facility] Ordered return to the clinic if condition worsens or new symptoms arise PROBLEM VISIT with DAGMAR JARRELL M.D. 07/02/2021 Last Documented On 1 10:29AM ; [facility] Plan - start medication PROBLEM VISIT with KELLY JARRELL M.D. 07/02/2021 Last Documented On 1 10:29AM ; [facility] Acetaminophen alternating wi th Motrin Patient may take alternating Tylenol or Ibuprofen every 4 to 6 hours as needed for fever and pain SICK VISIT with DAGMAR JARRELL M.D. 05/31/2021 Last Documented On 1 10:52AM ; [facility] Ordered patient to call if p roblem develops SICK VISIT with DAGMAR JARRELL M.D. 05/31/2021 Last Documented On 1 10:52AM ; [facility] Ordered return to the clinic if condition worsens or new symptoms arise SICK VISIT with DAGMAR JARRELL M.D. 05/31/2021 Last Documented On 1 10:52AM ; [facility] Supportive care was advised. Symptomatic therapy for symptoms. Can use over the counter cough or cold medicine and tylenol as needed SICK VISIT with DAGMAR JARRELL M.D. 05/31/2021 Last Documented On 1 10:52AM ; [facility] Ordered patient to call if p roblem develops 3 MONTH CHECK with DAGMAR JARRELL M.D. 12/23/2019 Last Documented On 0 10:21AM ; [facility] Ordered return to the clinic if condition worsens or new symptoms arise 3 MONTH CHECK with DAGMAR JARRELL M.D. 12/23/2019 Last Documented On 0 10:21AM ; [facility] Acetaminophen alternating wi th Motrin Patient may take alternating Tylenol or Ibuprofen every 4 to 6 hours as needed for fever and pain SICK VISIT with DAGMAR JARRELL M.D. 12/13/2019 Last Documented On 0 3:37PM ; [facility] Ordered patient to call if jorge luis null develops SICK VISIT with DAGMAR Justin.D. 12/13/2019 Last Documented On 0 3:37PM ; [facility] Ordered return to the clinic if condition worsens or new symptoms arise SICK VISIT with DAGMAR Justin.D. 12/13/2019 Last Documented On 0 3:37PM ; [facility] Supportive care was advised. Symptomatic therapy for symptoms. Can use over the counter cough or cold medicine and tylenol as needed SICK VISIT with DAGMAR Justin.Tena 12/13/2019 Last Documented On 0 3:37PM ; [facility] Ordered chest x-ray ordered in outside facility NEW PATIENT VISIT with DAGMAR JARRELL M.D. 09/19/2019 Last Documented On 9 11:58AM ; [facility] Ordered patient to call if p k[place] develops NEW PATIENT VISIT with DAGMAR Justin.Sarahi. 09/19/2019 Last Documented On 9 11:58AM ; [facility] Ordered return to the clinic if condition worsens or new symptoms arise NEW PATIENT VISIT with DAGMAR Justin.Sarahi. 09/19/2019 Last Documented On 9 11:58AM ; [facility] Pt to use prescription as or dered. Purpose of and use of medication discussed. [facility]IN [facility]IC SICK VISIT with GUERLINE LEE [employer] MANAGERRESHMA 09/17/2017 Last Documented On 7 4:57PM ; [facility] Instructions to patient Intervention and counseling on cessation of tobacco use Last Documented On 3 3:37PM ; [facility] Intervention and counseling on cessation of tobacco use Last Documented On 1 9:57AM ; [facility] Intervention and counseling on cessation of tobacco use Last Documented On 1 10:10AM ; [facility] Intervention and counseling on cessation of tobacco use : Patient recieved smoking cessation handout Last Documented On 1 11:08AM ; [facility] Education and Decision Aids were provided during visit for: Education and counseling Adv ice appropriate Dietary regimen Last Documented On 2 1:36PM ; [facility] Education and counseling Adv ice to have regular exercise regimen Last Documented On 2 1:36PM ; [facility] Assessments Includes: Assessments for all patient encounters Findings Encounter Date [M54.50 - Low back pain, uns pecified] lumbago PROBLEM VISIT with DAISY ROWLAND PA-C 09/17/2023 Last Documented On 3 5:09PM ; [facility] ADHD, combined type CHECK UP with DAGMAR S DIZO N M.D. 05/25/2023 Last Documented On 3 3:55PM ; [facility] ADHD, combined type CHECK UP with DAGMAR S DIZO N M.D. 02/23/2023 Last Documented On 3 3:56PM ; [facility] ADHD, combined type CHECK UP with DAGMAR S DIZO N M.D. 01/22/2023 Last Documented On 3 4:00PM ; [facility] ADHD, combined type CHECK UP with DAGMAR S DIZO N M.D. 05/02/2022 Last Documented On 2 10:13AM ; [facility] ADHD, combined type CHECK UP with DAGMAR S DIZO N M.D. 01/29/2022 Last Documented On 2 1:37PM ; [facility] ADHD, combined type CHECK UP with DAGMAR S DIZO N M.D. 09/19/2021 Last Documented On 1 2:49PM ; [facility] Lumbago PROBLEM VISIT with DAGMAR S DIZ ON M.D. 07/02/2021 Last Documented On 1 10:29AM ; [facility] Acute pharyngitis SICK VISIT with DAGMAR S DIZO N M.D. 05/31/2021 Last Documented On 1 10:52AM ; [facility] Upper respiratory infection SICK VISIT with ERNIE RN CARDIOLOGY S WESLY M.D. 05/31/2021 Last Documented On 1 10:52AM ; [facility] ADHD, combined type CHECK UP with DAGMARDilip MENDEZ N M.D. 03/19/2021 Last Documented On 1 11:35AM ; [facility] ADHD, combined type ANNUAL PHYSICAL EXAM with DYLAN Justin.Tena 12/17/2020 Last Documented On 1 1:26PM ; [facility] Attention-deficit hyperactivity disorder MED CHECK with DAGMAR Batsheva JARRELL M.D. 11/01/2020 Last Documented On 0 1:43PM ; [facility] Routine adult history and ph ysical (18-64 yrs) without abnormal findings 3 MONTH CHECK with DAGMAR S WESLY M.D. 12/23/2019 Last Documented On 0 10:21AM ; [facility] Upper respiratory infection SICK VISIT with ERNIE RN CARDIOLOGY S WESLY M.D. 12/13/2019 Last Documented On 0 3:37PM ; [facility] Viral syndrome SICK VISIT with DAGMAR Batsheva MENDEZN M.D. 12/13/2019 Last Documented On 0 3:37PM ; [facility] Hyperlipidemia NEW PATIENT VISIT with DAGMAR Batsehva MENDEZN M.D. 09/19/2019 Last Documented On 9 11:58AM ; [facility] Lung mass NEW PATIENT VISIT with DAGMARDilip JARRELL M.D. 09/19/2019 Last Documented On 9 11:58AM ; [facility] Viral gastroenteritis WALK-IN CLINIC SIC K VISIT with GUERLINE LEE [facility] 09/17/2017 Last Documented On 7 4:57PM ; [facility] Instructions Includes: Instructions for all patient encounters Instructions to patient Intervention and counseling on cessation of tobacco use Last Documented On 3 3:37PM ; [facility] Intervention and counseling on cessation of tobacco use Last Documented On 1 9:57AM ; [facility] Intervention and counseling on cessation of tobacco use Last Documented On 1 10:10AM ; [facility] Intervention and counseling on cessation of tobacco use : Patient recieved smoking cessation handout Last Documented On 1 11:08AM ; [facility] Education and Decision Aids were provided during visit for: Education and counseling Adv ice appropriate Dietary regimen Last Documented On 2 1:36PM ; [facility] Education and counseling Adv ice to have regular exercise regimen Last Documented On 2 1:36PM ; [facility] Medical Equipment - Implanted Devices Includes: Current and historical Devices No Medical Equipment Recorded Medications Includes: Current and historical Medications Current Medications (continue as prescribed) Ibuprofen 800 MG Oral Tablet 09/17/2023 Provider: DAISY Muñiz Diagnosis: Low back pain, u nspecified Take one four times a day as needed/ take with food Last Documented On 3 3:57PM By Daisy Rowland PA-C ; [facility] Orphenadrine Citrate ER 100 MG Oral Tablet Extended Release 12 Hour 09/17/2023 Provider: DAISY ROWLAND PA-C Diagnosis: Low back pain, u nspecified 1 tab BID PRN back spasm Last Documented On 3 3:57PM By Daisy Rowland PA-C ; [facility] Adderall XR 30 MG Oral Capsule Extended Release 24 Hour 08/12/2023 Provider: DAGMAR JARRELL M.D. Diagnosis: Attention-defici t hyperactivity disorder, combined type 1 Capsule every morning Last Documented On 08/12/2023 11:50AM By HESHAM JARRELL MD ; [facility] Past Medications on file Adderall XR 30 MG Oral Capsule Extended Release 24 Hour 07/14/2023 - 08/12/2023 Provider: DAGMAR JARRELL M.D. Diagnosis: Attention-defici t hyperactivity disorder, combined type 1 Capsule every morning Last Documented On 08/12/2023 11:34AM By HESHAM JARRELL MD ; [facility] Adderall XR 30 MG Oral Capsule Extended Release 24 Hour 07/14/2023 - 07/14/2023 Provider: DAGMAR JARRELL M.D. Diagnosis: Attention-defici t hyperactivity disorder, combined type 1 Capsule every morning Last Documented On 07/14/2023 9:03AM By HESHAM JARRELL MD ; [facility] Adderall XR 30 MG Oral Capsule Extended Release 24 Hour 06/16/2023 - 07/14/2023 Provider: DAGMAR JARRELL M.D. Diagnosis: Attention-defici t hyperactivity disorder, combined type 1 Capsule every morning Last Documented On 07/14/2023 9:02AM By HESHAM JARRELL MD ; [facility] Ibuprofen 800 MG Oral Tablet 05/25/2023 - 09/17/2023 P rovider: DAGMAR JARRELL M.D. Diagnosis: Take one four times a day as needed/ take with f ood Last Documented On 3:53PM By Daisy Rowland PA-C ; [facility] Adderall XR 30 MG Oral Capsule Extended Release 24 Hour 05/18/2023 - 06/16/2023 Provider: DAGMAR JARRELL M.D. Diagnosis: Attention-defici t hyperactivity disorder, combined type 1 Capsule every morning Last Documented On 06/16/2023 4:42PM By HESHAM JARRELL MD ; [facility] Adderall XR 30 MG Oral Capsule Extended Release 24 Hour 04/20/2023 - 05/18/2023 Provider: DAGMAR JARRELL M.D. Diagnosis: Attention-defici t hyperactivity disorder, combined type 1 Capsule every morning Last Documented On 05/18/2023 10:49PM By HESHAM JARRELL MD ; [facility] Adderall XR 30 MG Oral Capsule Extended Release 24 Hour 03/23/2023 - 04/20/2023 Provider: DAGMAR JARRELL M.D. Diagnosis: Attention-defici t hyperactivity disorder, combined type 1 Capsule every morning Last Documented On 04/20/2023 4:59PM By HESHAM JARRELL MD ; [facility] Adderall XR 30 MG Oral Capsule Extended Release 24 Hour 02/20/2023 - 03/23/2023 Provider: DAGMAR JARRELL M.D. Diagnosis: Attention-defici t hyperactivity disorder, combined type 1 Capsule every morning Last Documented On 03/23/2023 10:20AM By HESHAM JARRELL MD ; [facility] Adderall XR 30 MG Oral Capsule Extended Release 24 Hour 01/22/2023 - 02/20/2023 Provider: DAGMAR JARRELL M.D. Diagnosis: Attention-defici t hyperactivity disorder, combined type 1 Capsule every morning Last Documented On 02/20/2023 10:36AM By HESHAM JARRELL MD ; [facility] Adderall XR 25 MG Oral Capsule Extended Release 24 Hour 01/13/2023 - 05/25/2023 Provider: DAGMAR JARRELL M.D. Diagnosis: Attention-defici t hyperactivity disorder, combined type 1 Capsule every morningNeed Office Visit. Last Documented On 05/25/2023 3:54PM By HESHAM JARRELL MD ; [facility] Adderall XR 25 MG Oral Capsule Extended Release 24 Hour 12/29/2022 - 01/13/2023 Provider: DAGMAR JARRELL M.D. Diagnosis: Attention-defici t hyperactivity disorder, combined type 1 Capsule every morningNeed Office Visit. Last Documented On 01/13/2023 11:20AM By HESHAM JARRELL MD ; [facility] Adderall XR 25 MG Oral Capsule Extended Release 24 Hour 12/12/2022 - 12/29/2022 Provider: DAGMAR JARRELL M.D. Diagnosis: Attention-defici t hyperactivity disorder, combined type 1 Capsule every morningNeed Office Visit. Last Documented On 12/29/2022 9:40AM By HESHAM JARRELL MD ; [facility] Adderall XR 25 MG Oral Capsule Extended Release 24 Hour 11/27/2022 - 12/12/2022 Provider: DAGMAR JARRELL M.D. Diagnosis: Attention-defici t hyperactivity disorder, combined type 1 Capsule every morningNeed Office Visit. Last Documented On 12/12/2022 4:03PM By HESHAM JARRELL MD ; [facility] Adderall XR 25 MG Oral Capsule Extended Release 24 Hour 11/10/2022 - 11/27/2022 Provider: DAGMAR JARRELL M.D. Diagnosis: Attention-defici t hyperactivity disorder, combined type 1 Capsule every morningNeed Office Visit. Last Documented On 11/27/2022 10:29AM By HESHAM JARRELL MD ; [facility] Adderall XR 25 MG Oral Capsule Extended Release 24 Hour 10/28/2022 - 11/10/2022 Provider: DAGMAR JARRELL M.D. Diagnosis: Attention-defici t hyperactivity disorder, combined type 1 Capsule every morningNeed Office Visit. Last Documented On 11/10/2022 2:07PM By HESHAM JARRELL MD ; [facility] Ibuprofen 800 MG Oral Tablet 10/10/2022 - 05/25/2023 P rovider: DAGMAR JARRELL M.D. Diagnosis: Take one four times a day as needed/ take with f ood Last Documented On 05/25/2023 3:36PM By HESHAM JARRELL MD ; [facility] Adderall XR 25 MG Oral Capsule Extended Release 24 Hour 10/10/2022 - 10/28/2022 Provider: DAGMAR JARRELL M.D. Diagnosis: Attention-defici t hyperactivity disorder, combined type 1 Capsule every morningNeed Office Visit. Last Documented On 10/28/2022 4:49PM By HESHAM JARRELL MD ; [facility] Adderall XR 25 MG Oral Capsule Extended Release 24 Hour 09/23/2022 - 10/10/2022 Provider: DAGMAR JARRELL M.D. Diagnosis: Attention-defici t hyperactivity disorder, combined type 1 Capsule every morningNeed Office Visit. Last Documented On 10/10/2022 4:30PM By HESHAM JARRELL MD ; [facility] Adderall XR 25 MG Oral Capsule Extended Release 24 Hour 08/25/2022 - 09/23/2022 Provider: DAGMAR JARRELL M.D. Diagnosis: Attention-defici t hyperactivity disorder, combined type 1 Capsule every morningNeed Office Visit. Last Documented On 09/23/2022 3:51PM By HESHAM JARRELL MD ; [facility] Adderall XR 25 MG Oral Capsule Extended Release 24 Hour 07/24/2022 - 08/25/2022 Provider: DAGMAR JARRELL M.D. Diagnosis: Attention-defici t hyperactivity disorder, combined type 1 Capsule every morning Last Documented On 08/25/2022 10:46AM By HESHAM JARRELL MD ; [facility] Adderall XR 25 MG Oral Capsu le Extended Release 24 Hour 06/26/2022 - 07/24/2022 Provider: DAGMAR THOMPSON M.D. Diagnosis: 1 Capsule every morning Last Documented On 07/24/2022 11:10AM By HESHAM JARRELL MD ; [facility] Adderall XR 25 MG Oral Capsu le Extended Release 24 Hour 05/27/2022 - 05/27/2022 Provider: DAGMAR THOMPSON M.D. Diagnosis: 1 Capsule every morning Last Documented On 05/27/2022 1:21PM By HESHAM JARRELL MD ; [facility] Adderall XR 25 MG Oral Capsu le Extended Release 24 Hour 05/27/2022 - 06/26/2022 Provider: DAGMAR THOMPSON M.D. Diagnosis: 1 Capsule every morning Last Documented On 06/26/2022 9:49AM By HESHAM JARRELL MD ; [facility] Adderall XR 25 MG Oral Capsu le Extended Release 24 Hour 04/29/2022 - 05/27/2022 Provider: DAGMAR THOMPSON M.D. Diagnosis: 1 Capsule every morning Last Documented On 05/27/2022 9:46AM By HESHAM JARRELL MD ; [facility] Adderall XR 25 MG Oral Capsule Extended Release 24 Hour 04/01/2022 - 04/29/2022 Provider: IMANI ÁLVAREZ D.O. Diagnosis: 1 Capsule every morning Last Documented On 04/29/2022 9:20AM By HESHAM JARRELL MD ; [facility] Adderall XR 25 MG Oral Capsule Extended Release 24 Hour 02/27/2022 - 04/01/2022 Provider: IMANI ÁLVAREZ D.O. Diagnosis: 1 Capsule every morning Last Documented On 04/01/2022 10:53AM By IMANI ÁLVAREZ DO ; [facility] Adderall XR 25 MG Oral Capsu le Extended Release 24 Hour 01/29/2022 - 02/27/2022 Provider: DAGMAR THOMPSON M.D. Diagnosis: 1 Capsule every morning Last Documented On 02/27/2022 5:21PM By IMANI ÁLVAREZ DO ; [facility] Adderall XR 25 MG Oral Capsu le Extended Release 24 Hour 01/15/2022 - 01/29/2022 Provider: DAGMAR THOMPSON M.D. Diagnosis: 1 capsule dailyNeed Office Visit. Last Documented On 01/29/2022 11:47AM By HESHAM JARRELL MD ; [facility] Adderall XR 25 MG Oral Capsu le Extended Release 24 Hour 12/20/2021 - 01/15/2022 Provider: DAGMAR THOMPSON M.D. Diagnosis: 1 capsule daily Last Documented On 01/15/2022 1:18PM By HESHAM JARRELL MD ; [facility] Adderall XR 25 MG Oral Capsu le Extended Release 24 Hour 11/19/2021 - 12/20/2021 Provider: DAGMAR THOMPSON M.D. Diagnosis: 1 capsule daily Last Documented On 12/20/2021 8:55AM By HESHAM JARRELL MD ; [facility] Adderall XR 25 MG Oral Capsu le Extended Release 24 Hour 10/22/2021 - 11/19/2021 Provider: DAGMAR THOMPSON M.D. Diagnosis: 1 capsule daily Last Documented On 11/19/2021 11:04AM By HESHAM JARRELL MD ; [facility] Adderall XR 25 MG Oral Capsu le Extended Release 24 Hour 09/23/2021 - 10/22/2021 Provider: DAGMAR THOMPSON M.D. Diagnosis: 1 capsule daily Last Documented On 10/22/2021 8:56AM By HESHAM JARRELL MD ; [facility] Adderall XR 25 MG Oral Capsu le Extended Release 24 Hour 09/09/2021 - 09/23/2021 Provider: DAGMAR THOMPSON M.D. Diagnosis: 1 capsule dailyNeed Office Visit. Last Documented On 09/23/2021 9:11AM By HESHAM JARRELL MD ; [facility] Adderall XR 25 MG Oral Capsu le Extended Release 24 Hour 08/26/2021 - 09/09/2021 Provider: DAGMAR THOMPSON M.D. Diagnosis: 1 capsule dailyNeed Office Visit. Last Documented On 09/09/2021 3:46PM By HESHAM JARRELL MD ; [facility] Adderall XR 25 MG Oral Capsu le Extended Release 24 Hour 08/13/2021 - 08/26/2021 Provider: DAGMAR THOMPSON M.D. Diagnosis: 1 capsule dailyNeed Office Visit. Last Documented On 08/26/2021 9:19AM By HESHAM JARRELL MD ; [facility] Adderall XR 25 MG Oral Capsu le Extended Release 24 Hour 07/15/2021 - 08/13/2021 Provider: DAGMAR THOMPSON M.D. Diagnosis: 1 capsule dailyNeed Office Visit. Last Documented On 08/13/2021 3:07PM By HESHAM JARRELL MD ; [facility] Adderall XR 25 MG Oral Capsu le Extended Release 24 Hour 07/15/2021 - 07/15/2021 Provider: DAGMAR THOMPSON M.D. Diagnosis: 1 capsule dailyNeed Office Visit. Last Documented On 07/15/2021 3:13PM By HESHAM JARRELL MD ; [facility] Ibuprofen 800 MG Oral Tablet 07/02/2021 - 10/10/2022 Provider: DAGMAR JARRELL M.D. Diagnosis: Low back pain Take one four times a day as needed/ take with food Last Documented On 10/10/2022 4:30PM By HESHAM JARRELL MD ; [facility] Adderall XR 25 MG Oral Capsu le Extended Release 24 Hour 06/17/2021 - 07/15/2021 Provider: DAGMAR THOMPSON M.D. Diagnosis: 1 capsule dailyNeed Office Visit. Last Documented On 07/15/2021 2:08PM By HESHAM JARRELL MD ; [facility] Adderall XR 25 MG Oral Capsu le Extended Release 24 Hour 05/17/2021 - 06/17/2021 Provider: DAGMAR THOMPSON M.D. Diagnosis: 1 capsule daily Last Documented On 06/17/2021 7:05PM By HESHAM JARRELL MD ; [facility] Adderall XR 25 MG Oral Capsule Extended Release 24 Hour 04/18/2021 - 05/17/2021 Provider: DAGMAR JARRELL M.D. Diagnosis: Attention-defici t hyperactivity disorder, combined type 1 capsule daily Last Documented On 05/17/2021 9:05AM By HESHAM JARRELL MD ; [facility] Adderall XR 25 MG Oral Capsule Extended Release 24 Hour 03/19/2021 - 04/18/2021 Provider: DAGMAR JARRELL M.D. Diagnosis: Attention-defici t hyperactivity disorder, combined type 1 capsule daily Last Documented On 04/18/2021 10:31AM By HESHAM JARRELL MD ; [facility] Adderall XR 20 MG Oral Capsu le Extended Release 24 Hour 02/22/2021 - 05/31/2021 Provider: DAGMAR THOMPSON M.D. Diagnosis: 1 capsule daily Last Documented On 05/31/2021 10:10AM By Linnette Green Marielle ; [facility] Adderall XR 20 MG Oral Capsu le Extended Release 24 Hour 01/25/2021 - 02/22/2021 Provider: DAGMAR THOMPSON M.D. Diagnosis: 1 capsule daily Last Documented On 02/22/2021 3:55PM By HESHAM JARRELL MD ; [facility] Adderall XR 20 MG Oral Capsu le Extended Release 24 Hour 12/27/2020 - 01/25/2021 Provider: DAGMAR THOMPSON M.D. Diagnosis: 1 capsule daily Last Documented On 01/25/2021 8:54AM By HESHAM JARRELL MD ; [facility] Adderall XR 20 MG Oral Capsu le Extended Release 24 Hour 12/14/2020 - 12/27/2020 Provider: DAGMAR THOMPSON M.D. Diagnosis: 1 capsule daily Last Documented On 12/27/2020 11:33AM By HESHAM JARRELL MD ; [facility] Adderall XR 20 MG Oral Capsu le Extended Release 24 Hour 12/14/2020 - 12/14/2020 Provider: DAGMAR THOMPSON M.D. Diagnosis: 1 capsule daily Last Documented On 12/14/2020 10:58AM By HESHAM JARRELL MD ; [facility] Adderall XR 20 MG Oral Capsu le Extended Release 24 Hour 11/29/2020 - 12/14/2020 Provider: DAGMAR THOMPSON M.D. Diagnosis: 1 capsule daily Last Documented On 12/14/2020 10:19AM By HESHAM JARRELL MD ; [facility] Adderall XR 20 MG Oral Capsu le Extended Release 24 Hour 11/01/2020 - 11/29/2020 Provider: DAGMAR THOMPSON M.D. Diagnosis: 1 capsule daily Last Documented On 11/29/2020 2:34PM By HESHAM JARRELL MD ; [facility] GROUP Zofran ODT 4MG Oral Tablet Disintegrating 09/17/2017 - 09/19/2019 Provider: GUERLINE LEE [employer] PROJECT MANAGER-BC Diagnosis: Viral intestinal infection, unspecified 1 every 6 hours as needed for nausea Last Documented On 9 11:03AM By Jenni Lopez Marielle ; [facility] Medications Administered Includes: Administered Medications in patient's chart Medications Administered Diagnosis Date Pro vider EQ Ibuprofen 200 MG OR TABS 09/17/2017 GUERLINEAKSHAT LEE IT INFRASTRUCTURE PROJECT MANAGER-BC Last Documented On 7 5:12PM By NATANAEL CORDOVA Marielle ; [facility] Results Includes: Results from 10/14/2023 through 10/14/2024 CBC WITH DIFF [facility] [place] Ordered by DAGMAR Weiner on 02/01/2024 [address] [facility] [place], [address] Collected: 02/01/2024 Report ed: 02/01/2024 08:28 tel: Last Documented On 4 11:11AM ; [facility] Reviewed by DAGMAR JARRELL M.D. on 03/31/2024; All test results are final unless otherwise noted. Review Note Provider Name Date Will Discuss results with Patient next visit. DYLAN JARRELL M.D. 03/31/2024 ALC 2.6 None Last Documented On 4 8:41PM ; [facility] Note: Responsible Observer: (HRG) ANC 4.2 None Last Documented On 4 8:41PM ; [facility] Note: Responsible Observer: (HRG) BASO# 0.11 th/uL (0.00 - 0.20) None Last Documented On 4 8:41PM ; [facility] Note: Responsible Observer: (HRG) BASO% 1.4 % (0.0 - 2.0) None Last Documented On 4 8:41PM ; [facility] Note: Responsible Observer: (HRG) CBC WITH DIFF See Note None Last Documented On 4 8:41PM ; [facility] Note: CBC (COMPLETE BLOOD COUNT)Responsi ble Observer: (HRG) DIFF (Y/N) NO None Last Documented On 4 8:41PM ; [facility] Note: Responsible Observer: (HRG) EOS# 0.08 th/uL (0.00 - 0.45) None Last Documented On 4 8:41PM ; [facility] Note: Responsible Observer: (HRG) EOS% 1.0 % (0.0 - 9.0) None Last Documented On 4 8:41PM ; [facility] Note: Responsible Observer: (HRG) HCT 46.0 % (40.0 - 54.0) None Last Documented On 4 8:41PM ; [facility] Note: Responsible Observer: (HRG) HGB 15.4 g/dL (13.5 - 17.5) None Last Documented On 4 8:41PM ; [facility] Note: Responsible Observer: (HRG) IG# 0.05 th/ul (0.00 - 0.10) None Last Documented On 4 8:41PM ; [facility] Note: Responsible Observer: (HRG) IG% 0.6 % (0.0 - 0.5) H (High) Last Documented On 4 8:41PM ; [facility] Note: Responsible Observer: (HRG) LYMPH# 2.66 th/uL (1.00 - 4.80) None Last Documented On 4 8:41PM ; [facility] Note: Responsible Observer: (HRG) LYMPH% 33.9 % (14.0 - 45.0) None Last Documented On 4 8:41PM ; [facility] Note: Responsible Observer: (HRG) MCH 29.3 pg (25.0 - 35.0) None Last Documented On 4 8:41PM ; [facility] Note: Responsible Observer: (HRG) MCHC 33.5 g/dL (31.0 - 36.0) None Last Documented On 4 8:41PM ; [facility] Note: Responsible Observer: (HRG) MCV 87.6 fl (80.0 - 100) None Last Documented On 4 8:41PM ; [facility] Note: Responsible Observer: (HRG) MONO# 0.71 th/uL (0.00 - 0.80) None Last Documented On 4 8:41PM ; [facility] Note: Responsible Observer: (HRG) MONO% 9.1 % (1.0 - 10.0) None Last Documented On 4 8:41PM ; [facility] Note: Responsible Observer: (HRG) MPV 9.4 fl (6.0 - 11.0) None Last Documented On 4 8:41PM ; [facility] Note: Responsible Observer: (HRG) NEUT# 4.23 th/uL None Last Documented On 4 8:41PM ; [facility] Note: Responsible Observer: (HRG) NEUT% 54.0 % (45.0 - 76.0) None Last Documented On 4 8:41PM ; [facility] Note: Responsible Observer: (HRG) NRBC% 0.0 % (0.0 - 0.0) None Last Documented On 4 8:41PM ; [facility] Note: Responsible Observer: (HRG) PLT 325 th/uL (150 - 400) None Last Documented On 4 8:41PM ; [facility] Note: Responsible Observer: (HRG) RBC 5.25 mil/uL (4.50 - 5.90) None Last Documented On 4 8:41PM ; [facility] Note: Responsible Observer: (HRG) RDW 12.6 % (11.0 - 16.0) None Last Documented On 4 8:41PM ; [facility] Note: Responsible Observer: (HRG) WBC 7.8 th/uL (4.5 - 11.0) None Last Documented On 4 8:41PM ; [facility] Note: Responsible Observer: (HRG) CMP [facility] [place] Ordered by DAGMAR Weiner on 02/01/2024 [address] [facility], [place], [address] Collected: 02/01/2024 Report ed: 02/01/2024 09:22 tel: Last Documented On 4 11:11AM ; [facility] Reviewed by DAGMAR JARRELL M.D. on 03/31/2024; All test results are final unless otherwise noted. Review Note Provider Name Date Will Discuss results with Patient next visit. DYLAN JARRELL M.D. 03/31/2024 A/G RATIO 1.4 (1.1 - 2.2) None Last Documented On 4 8:41PM ; [facility] Note: eGFR INTERPRETATION AGE AVG GFR 2 [...] None Last Documented On 4 8:41PM ; [facility] Note: Responsible Observer: (PA) ALBUMIN 3.9 g/dL (3.5 - 5.0) None Last Documented On 4 8:41PM ; [facility] Note: Responsible Observer: (PA) ALK PHOS 95 IU/L (40 - 150) None Last Documented On 4 8:41PM ; [facility] Note: Responsible Observer: (PA) ALT (SGPT) 15 IU/L (0 - 55) None Last Documented On 4 8:41PM ; [facility] Note: Responsible Observer: (PA) ANION GAP 17.0 mmol/L (8.0 - 16.0) H (High) Last Documented On 4 8:41PM ; [facility] Note: Responsible Observer: (PA) AST (SGOT) 12 IU/L (5 - 34) None Last Documented On 4 8:41PM ; [facility] Note: Responsible Observer: (PA) BILIRUBIN TOT 0.5 mg/dL (0.2 - 1.0) None Last Documented On 4 8:41PM ; [facility] Note: Responsible Observer: (PA) BUN 8 mg/dL (9 - 20) L (Low) Last Documented On 4 8:41PM ; [facility] Note: Responsible Observer: (PA) CALCIUM 9.6 mg/dL (8.9 - 10.0) None Last Documented On 4 8:41PM ; [facility] Note: Responsible Observer: (PA) CHLORIDE 108 mmol/L (98 - 107) H (High) Last Documented On 4 8:41PM ; [facility] Note: Responsible Observer: (PA) CMP See Note None Last Documented On 4 8:41PM ; [facility] Note: COMPREHENSIVE METABOLIC PANELRespo nsible Observer: (RADHA) CREATININE 1.2 mg/dL (0.8 - 1.5) None Last Documented On 4 8:41PM ; [facility] Note: Responsible Observer: (PA) eGFR. 76 mL/min None Last Documented On 4 8:41PM ; [facility] Note: Responsible Observer: (PA) GLOBULIN 2.8 g/dl (2.0 - 4.2) None Last Documented On 4 8:41PM ; [facility] Note: Responsible Observer: (PA) GLUCOSE 103 mg/dL (70 - 105) None Last Documented On 4 8:41PM ; [facility] Note: Responsible Observer: (PA) POTASSIUM 4.0 mmol/L (3.6 - 5.0) None Last Documented On 4 8:41PM ; [facility] Note: Responsible Observer: (PA) SODIUM 140 mmol/L (137 - 145) None Last Documented On 4 8:41PM ; [facility] Note: Responsible Observer: (RADHA) TCO2 19.0 mmol/L (22.0 - 30.0) L (Low) Last Documented On 4 8:41PM ; [facility] Note: Responsible Observer: (RADHA) TOTAL PROTEIN 6.7 g/dL (6.4 - 8.3) None Last Documented On 4 8:41PM ; [facility] Note: Responsible Observer: (RADHA) LIPID PANEL [facility] [place] Ordered by DAGMAR Weiner on 02/01/2024 [address] [facility] [place], [address] Collected: 02/01/2024 Report ed: 02/01/2024 09:23 tel: Last Documented On 4 11:11AM ; [facility] Reviewed by DAGMAR JARRELL M.D. on 03/31/2024; All test results are final unless otherwise noted. Review Note Provider Name Date Will Discuss results with Patient next visit. DYLAN JARRELL M.D. 03/31/2024 CHOL/HDLC 5.6 (0.0 - 4.8) H (High) Last Documented On 4 8:41PM ; [facility] Note: Responsible Observer: (RADHA) CHOLESTEROL 220 mg/dL (0 - 200) H (High) Last Documented On 4 8:41PM ; [facility] Note: Responsible Observer: (RADHA) HDL 39 mg/dL (29 - 67) None Last Documented On 4 8:41PM ; [facility] Note: Responsible Observer: (RADHA) LDL 137 mg/dL (0 - 130) H (High) Last Documented On 4 8:41PM ; [facility] Note: Coronary Artery Risk Panel Referen ce Values Based on the recommendations of the Heart, Lung and Blood [place] (in mg/dL) Risk Levels = High Borderline Desirable Cholesterol >240 200 - 240 <200 LDL >160 130 - 159 <130 Cholesterol/HDL Ratio Male <= 4.88 Female <= 4.23Responsible Observer: (RADHA) LIPID PANEL See Note None Last Documented On 4 8:41PM ; [facility] Note: LIPID PANELResponsible Observer: ( RADHA) TRIGLYCERIDE 220 mg/dL (1 - 150) H (High) Last Documented On 4 8:41PM ; [facility] Note: Responsible Observer: (RADHA) A1C HGB (GLYCO HEMOGLOBIN) [facility] Ordered by DAGMAR Weiner on 02/01/2024 [address] , [place], [address] Collected: 02/01/2024 Report ed: 02/01/2024 09:23 tel: Last Documented On 4 11:11AM ; [facility] Reviewed by DAGMAR JARRELL M.D. on 03/31/2024; All test results are final unless otherwise noted. Review Note Provider Name Date Will Discuss results with Patient next visit. DYLAN JARRELL M.D. 03/31/2024 A1C HGB (GLYCO HEMOGLOBIN) See Note None Last Documented On 4 8:41PM ; [facility] Note: Glycohemoglobin (HEMOGLOBIN A1C)Re sponsible Observer: (RADHA) Hgb A1c 5.2 %_A1c (4.0 - 6.0) None Last Documented On 4 8:41PM ; [facility] Note: Responsible Observer: (RADHA) MBG 103 mg/dL (65 - 99) H (High) Last Documented On 4 8:41PM ; [facility] Note: *MBG (mean blood glucose) is a stephanie culated estimate of the mean blood glucose itis also refered to as estimated Average Glucose (eAG).*Responsible Observer: (RADHA) [facility] [place] Ordered by DAGMAR Weiner on 02/01/2024 [address] , [place], [address] Collected: 02/01/2024 Report ed: 02/01/2024 09:41 tel: Last Documented On 4 11:11AM ; [facility] Reviewed by DAGMAR JARRELL M.D. on 03/31/2024; All test results are final unless otherwise noted. Review Note Provider Name Date Will Discuss results with Patient next visit. DYLAN JARRELL M.D. 03/31/2024 TSH 1.9519 uIU/mL (0.3500 - 4.9400) None Last Documented On 4 8:41PM ; [facility] Note: Responsible Observer: (SD) Reported Physicians [facility] Suad jensen Ordered by DAGMAR Weiner on 02/01/[address] [place] [address], [place], [address] Collected: 02/01/2024 Report ed: 02/01/2024 09:41 tel: Last Documented On 4 11:11AM ; [facility] Reviewed by DAGMAR JARRELL M.D. on 03/31/2024; All test results are final unless otherwise noted. Review Note Provider Name Date Will Discuss results with Patient next visit. DYLAN JARRELL M.D. 03/31/2024 Reported Physicians See Note None Last Documented On 03/29/2024 8:41PM ; [facility] Note: Reported Physicians:Ordering: Jalen VILLAREALending: RACHEL VILLAREALConsulting: DAGMAR JARRELL History of Present Illness History of Present Illness not supported for this document type No History of Present Illness Recorded Social History Description Last Updated Not a current smoker 05/02/2022 Last Documented On 2 10:13AM ; [facility] Currently 01/29/2022 Last Documented On 2 1:37PM ; [facility] 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 Last Documented On 2 1:37PM ; [facility] Stopped smoking 8 years ago 01/29/2022 Last Documented On 2 1:37PM ; [facility] Chewing tobacco 09/19/2021 Last Documented On 1 2:49PM ; [facility] Tobacco non-user 07/02/2021 Last Documented On 1 10:29AM ; [facility] Current nonsmoker 05/31/2021 Last Documented On 1 10:52AM ; [facility] Former smoker 05/31/2021 Last Documented On 1 10:52AM ; [facility] Not using alcohol 09/19/2019 Last Documented On 9 11:58AM ; [facility] Not using drugs 09/19/2019 Last Documented On 9 11:58AM ; [facility] Smoking status : Former smoker 7 Last Documented On 7 4:57PM ; [facility] Medical History Includes: Medical History in patient's chart No Medical History Recorded Family History Includes: Family History in patient's chart Description Last Updated Children 01/29/2022 Last Documented On 2 1:37PM ; [facility] Review of Systems Review of Systems not [...] Active Last Documented On 3 3:44PM ; [facility] Insurance Includes: Active Insurance Policies Plan Name Member ID Group # Subscriber Relationship Effect afsaneh Dates 1 - [id number] [id number] carter Clinical Notes Includes: Signed Clinical Notes starting from 11/21/2022 No Clinical Notes Recorded
--- OUTSIDE RECORDS SUMMARY | 2024-10-14 12:14 | XMS_ITS | Clinical Summary ---
Author Organization [facility] Address [address] [place] [address] Phone Care Team Providers Care Director Of Enrollment Name Role Phone WESLY VARGAS, HESHAM Primary Care Provider [phone] WESLY Christie, DAGMAR Hernández [phone] Reason for Visit and Chief Complaint CHECK UP Problems Includes: Problems addressed during this encounter and other active Problems All Visits Onset Date Resolved Date Provider Condition S tatus Adhd, Combined Type 12/17/2020 DAGMAR JARRELL M.D. Active Last Documented On 1 1:25PM ; [facility] Plan of Treatment No Plan of [...] 3 3:57PM By Merry Murry PA-C ; [facility] Orphenadrine Citrate ER 100 MG Oral Tablet Extended Release 12 Hour 09/17/2023 Provider: MERRY MURRY PA-C Diagnosis: Low back pain, u nspecified 1 tab BID PRN back spasm Last Documented On 3 3:57PM By Merry Murry PA-C ; [facility] Adderall XR 30 MG Oral Capsule Extended Release 24 Hour 08/12/2023 Provider: DAGMAR JARRELL M.D. Diagnosis: Attention-defici t hyperactivity disorder, combined type 1 Capsule every morning Last Documented On 08/12/2023 11:50AM By HESHAM JARRELL MD ; [facility] Medications Administered Includes: Administered [...] Active Last Documented On 3 3:44PM ; [facility] Encounters Encounter Provider Location Date Check-In Time Check-Out Time Diagnosis CHECK UP DAGMAR JARRELL M.D. 08/15/2022 9:32AM 11:59PM Insurance Includes: Active Insurance Policies Plan Name Member ID Group # Subscriber Relationship Effect afsaneh Dates 1 - [facility] [id number] carter Clinical Notes Includes: Clinical Notes from this encounter No Clinical Notes Recorded
== END 2024-10-14 09:12 | disposition home or self-care (01) ==
PROVIDERS: Emergency Provider Registered Nurse
DX: J06.9 Acute upper respiratory infection, unspecified (principal); J02.9 Acute pharyngitis, unspecified; F90.9 Attention-deficit hyperactivity disorder, unspecified type
CPT/HCPCS: 87081; 87880; 99213; G0463

== ENCOUNTER 2025-07-20 07:53 | Outpatient (CLI) | payer OTHER, SELFPAY ==
--- NOTE | 2025-08-08 15:35 | WPDHOMESLEEP ---
Sleep Study - Home Unattended Date of Study: 07/20/25 Ordering Provider: Lex Sandoval MD Interpreting Provider: Traci Fung, DO Home Sleep Study Type: Watch PAT Height: 1.8 m Weight: 101.151 kg Body Mass Index: 31.1 Neck Circumference (inches): 19 [place]: 8 Reason for Sleep Study Unrefreshing sleep Sleep History The patient is a 35-year-old male that had a sleep study ordered by his primary care physician for evaluation of sleep apnea. The patient occasionally awakens from sleep short of breath. He frequently awakens at night with heartburn, belching or cough. He constantly snores and is frequently loud enough that others complain. He rarely has trouble sleeping when he has a cold. He frequently wakes up gasping for air throughout the night. He occasionally has breathing problems at night observed by himself or others. He denies sweating excessively at night. He denies having heart palpitations throughout the night. He rarely falls asleep during the day and never while driving. He denies cataplexy and hypnagogic/ hypnopompic hallucinations. He frequently has trouble at school or work due to sleepiness. He rarely feels unable to move while waking up or falling asleep. He denies feeling afraid of going to sleep. He denies having nightmares. He denies remembering his dreams. He rarely has thoughts racing through his mind. He rarely feels sad or depressed. He occasionally has anxiety. He rarely has muscular tension. He frequently notices parts of his body jerk. He rarely kicks during the night. He rarely has crawling and aching feelings in his legs and rarely has leg pain during the night. He denies grinding his teeth during sleep and denies awakening with morning jaw pain. He is occasionally bothered by pain during the day but never awakened by pain during the night. He occasionally wakes up feeling stiff in the morning. He occasionally wakes with sore or achy muscles. He occasionally wakes up with pain in the neck, spine and other joints. He goes to bed at 9:30 p.m. on weekdays and between 930 to 10:30 p.m. on the weekends. He is able to fall asleep within 10 minutes. He wakes up 1-2 times throughout the night to urinate is able to fall back asleep within 5 minutes. He wakes up at 5:30 a.m. on weekdays and 7:00 a.m. on the weekends. He typically gets 6-8 hours of sleep per night. He stays in bed for less than 30 minutes after waking up the morning he currently lives with his . He denies consuming any caffeinated beverages within 2 hours of bedtime. He denies engaging in physical exercise before bedtime. He denies reading and watching television before falling asleep. He denies taking naps in afternoon or the evening. He consumes 2-3 caffeinated beverages per day. He quit smoking cigarettes 10 years ago. He denies alcohol and recreational drug use. [facility] Past Medical History Medical History ADHD (attention deficit hyperactivity disorder) Surgical History Surgical History Hx of appendectomy Social History Social History Smoking status: Never smoker Alcohol intake: current Alcohol use details: social Substance use type: does not use Living arrangements: with family Gender identity (if verbalized by the patient): Male Medications Home Medications ?Medication ?Instructions ?Recorded ?Confirmed ?Type ondansetron 4 mg disintegrating 4 mg PO Q8H PRN nausea and 06/16/25 Rx tablet vomiting #14 tabs tirzepatide (weight loss) 5 mg/0.5 5 mg (0.5 mL) subcut WEEKLY #2 mL 07/24/25 Rx mL subcutaneous pen injector (Zepbound) lisdexamfetamine 30 mg capsule 30 mg PO DAILY #30 caps 08/07/25 Rx (Vyvanse) syringe with needle 3 mL 22 gauge #10 ea 08/08/25 Rx x 1 testosterone cypionate 200 mg/mL 200 mg IM .every 2 weeks #3 mL 08/08/25 Rx intramuscular oil Sleep Procedure The sleep study was completed using AdorStyleT a technically adequate device with seven channels: peripheral arterial tone, actigraphy, body position, snore, respiratory movement, pulse oximetry, sleep staging, and heart rate. Prior to using the device, the patient received verbal and written instructions for its application and was provided with the help desk phone number for additional telephonic instruction with 24-hour availability of qualified personnel to answer questions. The study was scored using CMS guidelines. Sleep Architecture The total recording time is 7 hrs, 4 min. The total sleep time is 5 hrs, 53 min. Sleep latency is 16 minutes. REM latency is 40 minutes. The patient had 12 episodes of waking. Sleep architecture shows 19.8% deep sleep, 70.2% light sleep, and (as % Total Sleep Time) showed NREM (Light 70.2%; Deep 19.8%), and a 10.0% stage REM. The patient spent 54.3% of total sleep time in the supine position. Sleep efficiency was 83.25. Respiratory Analysis The overall AHI (pAHI 4%:) is 2.3. The overall AHI (pAHI 3%:) is 3.0. The central AHI is 1.1. The AHI was 2.5 in NREM and 6.8 in REM sleep. The AHI was 3.2 in Supine and 2.8 in Non-supine sleep. Percent of Yury Gramajo respirations is 0.0. Oximetry Data The oxygen desaturation index (CARO 4%:) is 0.9. The mean saturation is 93%, and the lowest saturation is 88%. Time spent with saturation < 88% is 0.0 minutes. Snoring Profile Snoring average intensity is 40 dB. The patient snored above 45 decibels for 9.2 minutes, 2.6% of sleep time. Cardiac Profile The average pulse rate is 72 beats per minutes. The lowest pulse rate is 55 bpm. The highest pulse rate reported is 103 bpm. Atrial fibrillation was not detected. Premature beats occur <0.1 per minute. Assessment and Plan Assessment and Plan (1) Non-restorative sleep: Code(s): G47.8 - Other sleep disorders Status: Acute Assessment and Plan: The patient had an overall AHI of 2.3 with desaturation down to 88%. This is not consistent with sleep-disordered breathing. If there is further concern for a sleep disorder, I recommend that the patient have a split study with the use of a hypnotic to ensure we obtain enough sleep data. Data The data obtained during this sleep study is adequate for interpretation. Certification This sleep study has been reviewed by a board certified sleep medicine physician.
[2025-08-09 12:58] VITALS: BMI 31.1
== END 2025-07-21 13:28 | disposition home or self-care (01) ==
LOC: ANHCSM 07:54
PROVIDERS: PCP Family Medicine; Visit Provider Family Medicine
DX: G47.30 Sleep apnea, unspecified (principal); G47.8 Other sleep disorders
CPT/HCPCS: 95800

== ENCOUNTER 2025-07-26 08:36 | Outpatient (CLI) | payer OTHER, SELFPAY ==
[2025-07-26 09:32] LABS: Iron 91 ug/dL (49-181)
[2025-07-26 09:42] LABS: Transferrin 242 mg/dL (206-381)
[2025-07-26 09:54] LABS: Free T4 Free Thyroxine 1.08 ng/dL (0.78-2.19)
[2025-07-26 10:12] LABS: Prostate Specific Antigen 1.0 ng/mL (< OR = 4.0)
[2025-07-26 10:57] LABS: Thyroid Stimulating Hormone 0.707 uIU/mL (0.465-4.680)
[2025-07-27 11:09] LABS: FSH 3.1 mIU/mL (1.5-12.4); LH 4.6 mIU/mL (1.7-8.6)
[2025-07-30 13:07] LABS: Free Testosterone (Direct) 9.5 pg/mL (8.7-25.1)
== END 2025-07-26 08:37 | disposition home or self-care (01) ==
LOC: ANHLAB 08:37
PROVIDERS: PCP Family Medicine; Visit Provider Family Medicine
DX: R79.89 Other specified abnormal findings of blood chemistry (principal); Z12.5 Encounter for screening for malignant neoplasm of prostate
CPT/HCPCS: 36415; 83001; 83002; 83540; 84146; 84153; 84270; 84402; 84403; 84439; 84443; 84466; G0103

== ENCOUNTER 2025-09-13 07:45 | Outpatient (CLI) | payer OTHER, SELFPAY ==
[2025-09-13 08:16] LABS: Hematocrit 45.3 % (42.0-52.0); Hemoglobin 15.0 g/dL (14.0-18.0); Immature Granulocyte Percent A 0.2 % (0-0.5); Lymphocytes Absolute Auto 2.00 K/mm3 (0.9-3.2); Mean Corpuscular HGB Conc 33.1 g/dl (32-36); Mean Corpuscular Hemoglobin 29.1 pg (26-34); Mean Corpuscular Volume 88.0 fl (80-100); Nucleated Red Blood Cells Absolute Auto 0.000 K/mm3 (0.0-0.012); Nucleated Red Blood Cells Perc 0.0 % (0.0-0.2); Platelet Count Result 317 k/mm3 (150-375); Red Blood Count 5.15 M/mm3 (4.6-6.20); White Blood Count 5.5 K/mm3 (4.5-10.0)
[2025-09-13 08:55] LABS: Alanine Aminotransferase 33 U/L (6-50); Albumin Level 4.4 g/dL (3.5-5.1); Alkaline Phosphatase 72 U/L (38-126); Aspartate Amino Transferase 29 U/L (17-59); Bilirubin,Total 0.6 mg/dL (0.2-1.3); Total Protein 7.7 g/dL (6.3-8.2)
[2025-09-15 15:09] LABS: Free Testosterone (Direct) 25.3 pg/mL (8.7-25.1)
== END 2025-09-13 07:46 | disposition home or self-care (01) ==
LOC: ANHLAB 07:46
PROVIDERS: PCP Family Medicine; Visit Provider Family Medicine
DX: R74.01 Elevation of levels of liver transaminase levels (principal); E34.9 Endocrine disorder, unspecified; R79.89 Other specified abnormal findings of blood chemistry
CPT/HCPCS: 36415; 80076; 84402; 84403; 85025

== ENCOUNTER 2025-10-20 10:43 | Outpatient (CLI) | payer OTHER, SELFPAY ==
--- NOTE | ~2025-10-20 | US_ITS ---
EXAMINATION: US soft tissue chest, 10/20/2025 10:46 PHYSICAL THERAPIST CLINIC DIRECTOR HISTORY: R22.2 - Localized swelling, mass and lump, trunk Comparison: None Technique: Larkin-scale and color Doppler images were obtained. Findings: Correlating with the palpable area there is no abnormal mass or mass effect, no increased flow IMPRESSION: Unremarkable exam Reviewed, dictated and finalized at location P. ICAL THERAPIST CLINIC DIRECTOR IMPRESSION: Unremarkable exam
== END 2025-10-20 10:44 | disposition home or self-care (01) ==
LOC: MICIMG 10:44
PROVIDERS: PCP Family Medicine; Visit Provider Family Medicine
DX: R22.2 Localized swelling, mass and lump, trunk (principal)
CPT/HCPCS: 76604